=== PATIENT | male | born 1955 | race Caucasian/White ===

== ENCOUNTER 2017-03-23 08:37 | Outpatient (CLI) | payer OTHER ==
[~2017-03-23] VITALS: Ht 157.5 cm; Wt 80.0 kg
[2017-03-23 09:06] VITALS: BP 105/65; PULSE 56; RESP 16; Ht 157.5 cm; Wt 80.0 kg
[2017-03-23] MEDS ORDERED: FOLI-49 PO (09:14)
[2017-03-23] MEDS ORDERED: OMEP40CA6 PO (09:14)
[2017-03-23] MEDS ORDERED: THIA100T56 PO (09:14)
[2017-03-23] MEDS ORDERED: PROP10TA6 PO (09:14)
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
== END 2017-03-23 16:11 | disposition home or self-care (01) ==
LOC: HPC 08:37
PROVIDERS: ATTEND Transplant Surgery
DX: R16.0 Hepatomegaly, not elsewhere classified (principal); K74.60 Unspecified cirrhosis of liver; F10.10 Alcohol abuse, uncomplicated; B19.20 Unspecified viral hepatitis C without hepatic coma; K76.6 Portal hypertension; K31.9 Disease of stomach and duodenum, unspecified; D64.9 Anemia, unspecified
CPT/HCPCS: G0463

== ENCOUNTER 2017-06-20 16:48 | Inpatient (IN) | payer OTHER ==
[~2017-06-20] VITALS: Ht 152.4 cm; Wt 77.0 kg
[~2017-06-20 16:48] MED LIST: FOLI-49 PO; OMEP40CA6 PO; PROP10TA6 PO; THIA100T56 PO
[2017-06-20 17:01] VITALS: Ht 152.4 cm; Wt 77.0 kg
[2017-06-20] MEDS ORDERED: OCTREOTIDE 50 MCG in SOD CHLORIDE 0.9% 25 ML IVPB STA (17:38)
[2017-06-20] MEDS ORDERED: PANTOPRAZOLE IV 80 MG in SOD CHLORIDE 0.9% 100 ML IV STA (17:38)
[2017-06-20] MEDS ORDERED: CEFTRIAXONE 1 GM/50 ML (PMX) 50 ML IVPB STA (17:38)
[2017-06-20] MEDS ORDERED: OCTREOTIDE 500 MCG in SOD CHLORIDE 0.9% 49 ML IV STA (17:38)
[2017-06-20] MEDS ORDERED: PANTOPRAZOLE IV 80 MG in SOD CHLORIDE 0.9% 100 ML IVPB STA (17:38)
[2017-06-20 18:00] LABS: BASOPHILS % 0.4 % (0.0-2.0); EOSINOPHILS % 0.1 % (0.0-7.0); HEMATOCRIT 23.8 % (42.0-52.0); HEMOGLOBIN 7.5 g/dl (14.0-18.0); LYMPHOCYTES # 2.1 10^3/ul (0.8-2.9); LYMPHOCYTES % 18.7 % (15.0-51.0); MEAN CORPUSCULAR HEMOGLOBIN 29.3 pg (29.0-33.0); MEAN CORPUSCULAR HGB CONC 31.5 g/dl (32.0-37.0); MEAN PLATELET VOLUME 10.1 fl (7.4-10.4); MONOCYTE # 0.8 10^3/ul (0.3-0.9); NEUTROPHILS % 72.6 % (39.0-77.0); PLATELET COUNT 204 10^3/UL (140-415); RED BLOOD COUNT 2.56 10^6/ul (4.70-6.10); RED CELL DISTRIBUTION WIDTH 15.1 % (11.5-14.5)
[2017-06-20 18:17] LABS: INR 1.23; PROTIME 15.6 Sec (12.2-14.2); PT RATIO 1.2
[2017-06-20 18:19] LABS: ALANINE AMINOTRANSFERASE 52 IU/L (13-69); ALBUMIN 2.8 g/dl (3.3-4.9); ALBUMIN/GLOBULIN RATIO 0.71; ALKALINE PHOSPHATASE 280 IU/L (42-121); ANION GAP 15 (8-16); ASPARTATE AMINO TRANSFERASE 127 IU/L (15-46); BLOOD UREA NITROGEN 35 mg/dl (7-20); CALCIUM 8.9 mg/dl (8.4-10.2); CARBON DIOXIDE 21 mmol/L (21-31); CHLORIDE 106 mmol/L (97-110); GLUCOSE 91 mg/dl (70-220); POTASSIUM 4.7 mmol/L (3.5-5.1); SODIUM 137 mmol/L (135-144); TOTAL PROTEIN 6.7 g/dl (6.1-8.1)
[2017-06-20 18:35] LABS: TROPONIN-I < 0.012 ng/ml (0.00-0.12)
[2017-06-20] MEDS ORDERED: ONDANSETRON 4 MG INJ ONE (18:35)
[2017-06-20] MEDS ORDERED: ONDANSETRON 4 MG INJ IV STA (18:36)
[2017-06-20] MEDS ORDERED: morphine 4 MG/ML VIAL IV STA (18:49)
[2017-06-20] MEDS ORDERED: ACETAMINOPHEN 325 MG TAB PO PRN (19:00)
[2017-06-20] MEDS ORDERED: ONDANSETRON 4 MG INJ IV PRN ×2 (19:00→23:00)
--- NOTE | 2017-06-20 19:06 | ERA ---
ER Documentation Chief Complaint Date/Time DATE: 06/20/17 TIME: 19:01 Chief Complaint C/O FATIGUE, VOMITING, DIARRHEA, SOB, DIZZINESS HPI 62-year-old male history of cirrhosis secondary to alcohol, cholangiocarcinoma on chemotherapy last approximately 3-4 weeks ago. The patient presents with generalized fatigue, melena and coffee-ground emesis. He denies any chest pain or abdominal pain, no fevers or chills. The patient has had endoscopy showing esophageal varices. ROS All systems reviewed and are negative except as per history of present illness. Medications Home Meds Discontinued Reported Medications Propranolol Hcl* (Propranolol Hcl*) 10 Mg Tablet, 10 MG PO TID, TAB 03/23/17 Folic Acid* (Folic Acid*) 1 Mg Tablet, 1 MG PO DAILY, TAB 03/23/17 Omeprazole* (Omeprazole*) 40 Mg Capsule.dr, 40 MG PO DAILY, #30 CAP 03/23/17 Thiamine* (Vitamin B-1*) 100 Mg Tablet, 100 MG PO DAILY, TAB 03/23/17 Allergies Allergies: Coded Allergies: No Known Drug Allergies (Verified Allergy, Unknown, 06/20/17) PMhx/Soc History of Surgery: Yes (TACE, R shoulder, R arm surgery.) Anesthesia Reaction: No Hx Respiratory Disorders: No Hx Cardiac Disorders: No Hx Psychiatric Problems: No Hx Miscellaneous Medical Probl: Yes (Liver CA, Liver Chirrosis , Hep B, esophageal varices.) Hx Alcohol Use: No (HX of alcohol abuse.) Hx Substance Use: No Hx Tobacco Use: No Smoking Status: Former smoker FmHx Family History: No diabetes Physical Exam Vitals Vital Signs Date Time Temp Pulse Resp B/P Pulse Ox O2 Delivery O2 Flow Rate FiO2 06/20/17 17:01 97.7 114 18 114/66 99 Physical Exam General: Well developed, well nourished, no acute distress Head: Normocephalic, atraumatic. Eyes: Pupils equally reactive, EOM intact, conjunctival pallor noted ENT: Moist mucous membranes Neck: Supple, no lymphadenopathy Respiratory: Lungs clear bilaterally, no distress Cardiovascular: RRR, no murmurs, rubs, or gallops Abdominal: Soft, non-tender, non-distended, no peritoneal signs : Deferred MSK: No edema, no unilateral swelling, 5/5 strength Neurologic: Alert and oriented, moving all extremities, normal speech, no focal weakness, no cerebellar signs Skin: No rash Psych: Normal mood Result Diagram: 06/20/17 1750 06/20/171749 Results 24 hrs Laboratory Tests Test 06/20/17 17:50 White Blood Count 11.010^3/ul Red Blood Count 2.5610^6/ul Hemoglobin 7.5g/dl Hematocrit 23.8% Mean Corpuscular Volume 93.0fl Mean Corpuscular Hemoglobin 29.3pg Mean Corpuscular Hemoglobin Concent 31.5g/dl Red Cell Distribution Width 15.1% Platelet Count 56833^3/UL Mean Platelet Volume 10.1fl Neutrophils % 72.6% Lymphocytes % 18.7% Monocytes % 7.0% Eosinophils % 0.1% Basophils % 0.4% Nucleated Red Blood Cells % 0.0/100WBC Neutrophils # 8.010^3/ul Lymphocytes # 2.110^3/ul Monocytes # 0.810^3/ul Eosinophils # 0.010^3/ul Basophils # 0.010^3/ul Nucleated Red Blood Cells # 0.010^3/ul Prothrombin Time 15.6Sec Prothrombin Time Ratio 1.2 INR International Normalized Ratio 1.23 Activated Partial Thromboplast Time 32.0Sec Sodium Level 137mmol/L Potassium Level 4.7mmol/L Chloride Level 106mmol/L Carbon Dioxide Level 21mmol/L Anion Gap 15 Blood Urea Nitrogen 35mg/dl Creatinine 0.70mg/dl Glucose Level 91mg/dl Calcium Level 8.9mg/dl Total Bilirubin 1.0mg/dl Direct Bilirubin 0.00mg/dl Indirect Bilirubin 1.0mg/dl Aspartate Amino Transf (AST/SGOT) 127IU/L Alanine Aminotransferase (ALT/SGPT) 52IU/L Alkaline Phosphatase 280IU/L Troponin I < 0.012ng/ml Total Protein 6.7g/dl Albumin 2.8g/dl Globulin 3.90g/dl Albumin/Globulin Ratio 0.71 Current Medications Medications (Trade) Dose Ordered Sig/Allen Route PRN Reason Start Time Stop Time Status Last Admin Dose Admin Pantoprazole 80 mg/Sodium Chloride 100 ml @ 400 mls/hr ONCE STAT IVPB 06/20/17 17:38 06/20/17 17:52 DC 06/20/17 18:45 Pantoprazole 80 mg/Sodium Chloride 100 ml @ 10 mls/hr ONCE STAT IV 06/20/17 17:38 06/21/17 03:37 Octreotide Acetate 50 mcg/ Sodium Chloride 26 ml @ 100 mls/hr Q16M STAT IVPB 06/20/17 17:38 06/20/17 17:53 DC 06/20/17 18:45 Octreotide Acetate 500 mcg/ Sodium Chloride 50 ml @ 5 mls/hr ONCE STAT IV 06/20/17 17:38 06/21/17 03:37 Ceftriaxone Sodium (Rocephin) 50 ml @ 100 mls/hr ONCE STAT IVPB 06/20/17 17:38 06/20/17 18:07 DC 06/20/17 18:44 Ondansetron HCl (Zofran Inj) 4 mg STK-MED ONCE .ROUTE 06/20/17 18:35 06/20/17 18:36 DC Ondansetron HCl (Zofran Inj) 4 mg ONCE STAT IV 06/20/17 18:36 06/20/17 18:37 DC 06/20/17 18:45 Morphine Sulfate (morphine) 4 mg ONCE STAT IV 06/20/17 18:49 06/20/17 18:50 DC Procedures/MDM EKG, MONITORS, & DIAGNOSTIC IMAGING: EKG: I reviewed and interpreted a 12-lead EKG. Rhythm: Normal sinus rhythm Ectopy: None Intervals: No abnormalities ST segments: No elevations or depressions T waves: No contiguous inversions LAB INTERPRETATION: Hemoglobin of 7.5. It appears the baseline is around 10 in January MEDICAL DECISION MAKING: The patient presents with signs and symptoms consistent with subacute upper GI bleed. Likely secondary to esophageal varices. The patient was placed on a PPI , octreotide and ceftriaxone will be provided. At this time no indication for NG lavage. The patient has had a single episode of vomiting here that is coffee -ground, not bright red blood. The patient's hemoglobin is 7.5. Given that the patient has hemodynamic stability no indication for blood transfusion currently. However continue to monitor the patient's hemodynamics as well as serial hemoglobins. ER COURSE: The patient remains resting comfortably. 2 large-bore peripheral IVs have been inserted. Medications as documented above have been given. I spoke to Dr. Lamas, his hepatobiliary surgeon who is seen the patient before. I also spoke to Dr. Hairston, gastroenterology. He agrees with the plan of care. I kept the patient and/or family informed of laboratory and diagnostic imaging results throughout the emergency room course. DISPOSITION PLAN: Telemetry admission for management of subacute upper GI bleed. CONSULTATION: Accepting care team and consultations: I discussed the current laboratory data, diagnostic imaging and emergency care provided. Admitting team: Dr. Pineda Admitting team indication: Insurance directed Consulting services: Gastroenterology Dr. Hairston and hepatobiliary surgeon Dr. Lamas Departure Diagnosis: Primary Impression: Upper GI bleed Additional Impressions: History of cirrhosis Anemia Qualified Code: D64.9 - Anemia, unspecified type Condition: Stable YENY SHAH MD Jun 20, 2017 19:06
[2017-06-20 22:30] VITALS: TEMP 98.3
[2017-06-20] MEDS: SOD CHLORIDE 0.9% 1,000 ML IV SCH (22:59)
[2017-06-20] MEDS ORDERED: NACL 0.9% 3 ML SYG IV SCH (23:00)
[2017-06-21] VITALS (20 sets, daily range): BP systolic 97–118; BP diastolic 49–78; PULSE 68–117; RESP 17–31
[2017-06-21] MEDS: PANTOPRAZOLE IV 80 MG in SOD CHLORIDE 0.9% 100 ML IV SCH ×4 (03:41→21:31)
[2017-06-21] MEDS: OCTREOTIDE 1 MG in SOD CHLORIDE 0.9% 95 ML IV SCH ×2 (03:41→21:31)
--- NOTE | 2017-06-21 08:28 | HP ---
Date/Time of Note Date/Time of Note DATE: 06/21/17 TIME: 08:14 Assessment/Plan VTE Prophylaxis VTE Prophylaxis Intervention: SCD's Lines/Catheters IV [facility]from [facility] Saline Lock Assessment/Plan Chief Complaint/Hosp Course This is a 62-year-old male being admitted to the telemetry floor for: #1 upper GI bleed: Likely secondary to esophageal varices. At the current time patient is not actively bleeding. He did report an episode of bright bright red blood vomitus as well as dark vomitus. Initial hemoglobin was 7.5. H&H upon repeat it was 6.0. We will transfuse him 2 units of PRBCs. Will trend H& H q6 hours. Will continue octreotide and Protonix drip which was started in the ED. GI and surgery have been consulted. #2 esophageal varices: This likely appear to be the source of the bleeding though there is no active bleeding of bright red blood at this time. Will continue Protonix drip and octreotide. GI has been consulted. #3 abdominal ascites: Patient appears to have a significant amount of ascites which is not tense. He is not febrile. At the current time I will hold off on any paracentesis at this time secondary to #1. Once H&H is stable and patient is cleared by GI likely will get a therapeutic paracentesis. Patient also likely to be started on Lasix and spironolactone as an outpatient. #4 cirrhosis/hepatocellular CA: At the current time patient does not appear encephalopathic. Will get a hepatitis panel. We will need to start spironolactone and Lasix upon discharge when patient is stable. We will also check an ammonia level. Likely patient will need to start on lactulose as well. #5 cholangiocarcinoma: Patient received chemotherapy approximately 3-4 months ago. Continue outpatient follow-up with hematology. #6 DVT GI prophylaxis: SCDs, Protonix drip Further treatment strategy will be implemented as per the clinical course Problems: HPI/ROS Admit Date/Time Admit Date/Time Jun 20, 2017 at 19:00 Hx of Present Illness cc: fatigue, 62-year-old male history of cirrhosis secondary to alcohol, cholangiocarcinoma on chemotherapy last approximately 3-4 weeks ago. The patient presents with generalized fatigue, melena and coffee-ground emesis. He denies any chest pain , no fevers or chills. The patient has had endoscopy showing esophageal varices. Patient does report that he also has noticed abdominal distention over the most recent last few weeks. He denies ever having the paracentesis before. Allergies: NKDA Medications: See DANAY IGNACIA Const: As per HPI Eyes : No pain discharge or redness or change in visual acuity ENT: No pain, sore throat, congestion, congestion, dysphagia or discharge Respiratory: No shortness of breath, cough, sputum, wheezing, or pleuritic pain Cardiovascular: No chest pain, palpitation, PND, or edema GI : As per HPI Genitourinary: No dysuria, hematuria, flank pain , discharge or CVA tenderness Musculoskeletal: No joint pain, back pain, neck pain, restricted range of motion in neck or joints Skin: No rash, bruising or hives Neuro: No headache, dizziness, syncope, seizure, focal weakness Endocrine: No polyuria, polydipsia, temperature intolerance Psych: No hallucination, depression, anxiety or suicidal ideation PMH/Family/Social Past Medical History Cholangiocarcinoma status post chemotherapy, liver cirrhosis, hepatitis C, esophageal varices, multifocal hepatocellular carcinoma, s/p TACE Past Surgical History Right thigh hematoma removal, right sole shoulder surgery, Family History Significant Family History: no pertinent family hx Social History Alcohol Use: sober Smoking Status: Never smoker Drug Use: none Exam/Review of Systems Vital Signs Vitals Vital Signs Date Time Temp Pulse Resp B/P Pulse Ox O2 Delivery O2 Flow Rate FiO2 06/21/17 07:37 98.3 107 17 115/71 98 06/20/17 22:30 Room Air Intake and Output 06/20/17 06/20/17 06/21/17 15:00 23:00 07:00 Intake Total 0 ml Output Total 500 ml Balance -500 ml Exam Exam General: Patient is a pleasant male lying in bed in no acute distress HEENT: Atraumatic, normocephalic. The pupils are equal, round and reactive. Extraocular motor are intact Neck: Supple with full range of motion. No rigidity or meningismus Chest: Nontender Lungs: Clear to auscultation bilaterally no crackles rales or wheezing Heart: Normal S1-S2, Regular rhythm and rate. Abdomen: Soft, distended abdomen but it is not tense, normal bowel sounds Extremities: Normal to inspection, no edema no cyanosis Neurologic: Normal mental status, speech normal, cranial nerves II through XII are intact, motor and sensory are intact, no focal weakness physical exam, he does not appear encephalopathic. Labs Result Diagram: 06/21/17 0010 06/20/17 1750 Medications Medications Current Medications Sodium Chloride (NS) 1,000 ml @ 70 mls/hr [id number] IV Last administered on 06/20 22:59; Admin Dose 70 MLS/HR; Start 06/20/17 at 22:59 Ondansetron HCl (Zofran Inj) 4 mg Q6H PRN IV NAUSEA AND/OR VOMITING; Start 06/20/17 at 23:00 Morphine Sulfate 2 mg 2 mg Q4H PRN IV PAIN LEVEL 7-10; Start 06/20/17 at 23:00 Pantoprazole 80 mg/Sodium Chloride 100 ml @ 10 mls/hr Q10H IV Last administered on 06/21/17 03:41; Admin Dose 10 MLS/HR; Start 06/20/17 at 23:30 Octreotide Acetate/Sodium Chloride (Sandostatin/NS) 100 ml @ 5 mls/hr Q20H IV Last administered on 06/21/17 03:41; Admin Dose 5 MLS/HR; Start 06/20/17 at 23: 30 JIAN LEON Jun 21, 2017 08:28
[2017-06-21 09:18] LABS: HAAIG REFLEX REFLEX FILED
[2017-06-21 10:37] LABS: HEPATITIS B CORE ANTIBODY NEGATIVE (NEGATIVE)
[2017-06-21 11:35] LABS: HEMATOCRIT 20.1 % (42.0-52.0)
[2017-06-21 11:53] LABS: HEMOGLOBIN 6.4 g/dl (14.0-18.0)
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
[2017-06-21] MEDS: SOD CHLORIDE 0.9% 1,000 ML IV SCH (13:22)
[2017-06-21] MEDS ORDERED: VANCOMYCIN IV PER PHARMACY XX SCH (15:30)
[2017-06-21] MEDS ORDERED: PIPER-TAZO 3.375 GM IV (PMX) 100 ML IVPB SCH (16:00)
[2017-06-21 17:19] LABS: HEMATOCRIT 23.3 % (42.0-52.0); HEMOGLOBIN 7.6 g/dl (14.0-18.0)
[2017-06-21 17:48] LABS: ALBUMIN 2.5 g/dl (3.3-4.9); ALBUMIN/GLOBULIN RATIO 0.78; BILIRUBIN,DIRECT 0.5 mg/dl (0.00-0.20); BILIRUBIN,INDIRECT 1.4 mg/dl (0-1.1); BILIRUBIN,TOTAL 1.9 mg/dl (0.2-1.3); CALCIUM 7.7 mg/dl (8.4-10.2); CREATININE 0.86 mg/dl (0.61-1.24); POTASSIUM 4.9 mmol/L (3.5-5.1); TOTAL PROTEIN 5.7 g/dl (6.1-8.1)
--- NOTE | 2017-06-21 17:50 | PN ---
Date/Time of Note Date/Time of Note DATE: 06/21/17 TIME: 17:41 Assessment/Plan VTE Prophylaxis VTE Prophylaxis Intervention: contraindicated Lines/Catheters IV Catheter Type (from Nrs): Saline Lock Assessment/Plan Assessment/Plan 1. Upper GI bleed secondary to ?varices - GI on board and consultation appreciated - EGD today for further assessment - Will continue PPI drip and octreotide - monitor for further episodes of hematemesis or melena/hemotochezia 2. Anemia secondary to cirrhosis and blood loss - H/H this am <7 and transfused 2 units. Will continue monitoring and transfuse as needed - If <7.5 will give 1 unit PRBC and <7 give 2 units 3. Cirrhosis 2/2 alcohol abuse - in need of paracentesis and will consult IR when hemodynamically stable 4. HCC s/p TACE and reportedly on systemic chemo - currently undergoing treatment - Surgery on board and recommendations appreciated - If patient has extended stay will get Heme/Onc on board as well 5. Ascites - Will do therapeutic tap when stable - On broad spectrum antibiotics to cover SBP Subjective 24 Hr Interval Summary Free Text/Dictation Patient was seen this am and tolerating blood transfusion. Admits to dark emesis and diarrhea for the past 2 days. Still experiencing nausea without vomiting and abdominal discomfort secondary to abdominal swelling. Concerned about needing to be tapped since abdomen so swollen. Exam/Review of Systems Vital Signs Vitals Vital Signs Date Time Temp Pulse Resp B/P Pulse Ox O2 Delivery O2 Flow Rate FiO2 06/21/17 15:36 98.7 100 18 110/78 95 06/20/17 22:30 Room Air Intake and Output 06/20/17 06/20/17 06/21/17 15:00 23:00 07:00 Intake Total 0 ml Output Total 500 ml Balance -500 ml Exam General: NAD, pale complexion, receiving blood transfusion HEENT: NC/AT, PERRL, EOM intact Neck: Supple with full range of motion Lungs: Clear to auscultation bilaterally no crackles rales or wheezing Heart: Normal S1-S2, Regular rhythm and rate. Abdomen: Soft, distended abdomen but not tense, normal bowel sounds Extremities: Normal to inspection, no edema no cyanosis Neurologic: Normal mental status, speech normal, cranial nerves II through XII are intact, motor and sensory are intact, no focal weakness physical exam, he does not appear encephalopathic. Results Result Diagram: 06/21/17 1700 06/20/17 1750 Results 24 hrs Laboratory Tests Test 06/20/17 17:50 06/21/17 00:10 06/21/17 09:02 06/21/17 09:07 White Blood Count 11.0 H Red Blood Count 2.56 L Hemoglobin 7.5 L 6.0 *L 6.4 *L Hematocrit 23.8 L 20.0 L 20.1 L Mean Corpuscular Volume 93.0 Mean Corpuscular Hemoglobin 29.3 Mean Corpuscular Hemoglobin Concent 31.5 L Red Cell Distribution Width 15.1 H Platelet Count 204 Mean Platelet Volume 10.1 Neutrophils % 72.6 Lymphocytes % 18.7 Monocytes % 7.0 Eosinophils % 0.1 Basophils % 0.4 Nucleated Red Blood Cells % 0.0 Neutrophils # 8.0 H Lymphocytes # 2.1 Monocytes # 0.8 Eosinophils # 0.0 Basophils # 0.0 Nucleated Red Blood Cells # 0.0 Prothrombin Time 15.6 H Prothrombin Time Ratio 1.2 INR International Normalized Ratio 1.23 Activated Partial Thromboplast Time 32.0 Sodium Level 137 Potassium Level 4.7 Chloride Level 106 Carbon Dioxide Level 21 Anion Gap 15 Blood Urea Nitrogen 35 H Creatinine 0.70 Glucose Level 91 Calcium Level 8.9 Total Bilirubin 1.0 Direct Bilirubin 0.00 Indirect Bilirubin 1.0 Aspartate Amino Transf (AST/SGOT) 127 H Alanine Aminotransferase (ALT/SGPT) 52 Alkaline Phosphatase 280 H Troponin I < 0.012 Total Protein 6.7 Albumin 2.8 L Globulin 3.90 H Albumin/Globulin Ratio 0.71 Ammonia 49 H Hepatitis A Antibody Total POSITIVE H Hepatitis B Surface Antigen NEGATIVE Hepatitis B Surface Antibody NEGATIVE Hepatitis B Core Total Antibody NEGATIVE Hepatitis C Antibody REACTIVE H Test 06/21/17 17:00 Hemoglobin 7.6 L Hematocrit 23.3 L Medications Medications Current Medications Sodium Chloride (NS) 1,000 ml @ 70 mls/hr [id number] IV Last administered on 06/21t 13:22; Admin Dose 70 MLS/HR; Start 06/20/17 at 22:59 Ondansetron HCl (Zofran Inj) 4 mg Q6H PRN IV NAUSEA AND/OR VOMITING; Start 06/20/17 at 23:00 Morphine Sulfate 2 mg 2 mg Q4H PRN IV PAIN LEVEL 7-10; Start 06/20/17 at 23:00 Pantoprazole 80 mg/Sodium Chloride 100 ml @ 10 mls/hr Q10H IV Last administered on 06/21/17 03:41; Admin Dose 10 MLS/HR; Start 06/20/17 at 23:30 Octreotide Acetate 1 mg/ Sodium Chloride 100 ml @ 5 mls/hr Q20H IV Last administered on 06/21/17 03:41; Admin Dose 5 MLS/HR; Start 06/20/17 at 23:30 Piperacillin Sod/ Tazobactam Sod 100 ml @ 200 mls/hr Q8 IVPB ; Start 06/21/17 at 16:00 Vancomycin HCl 1.5 gm/Sodium Chloride 250 ml @ 83.333 mls/ hr ONCE@18 IVPB ; Start 06/21/17 at 18:00; Stop 06/21/17 at 21:00 Vancomycin HCl (Vancocin) 250 ml @ 125 mls/hr Q12H IVPB ; Start 06/22/17 at 06: 00 GAYATHRI CUTLER MD Jun 21, 2017 17:50
[2017-06-21] MEDS ORDERED: VANCOMYCIN 1.5 GM in SOD CHLORIDE 0.9% 250 ML IVPB SCH ×2 (18:00→20:00)
[2017-06-21] MEDS ORDERED: ONDANSETRON 4 MG INJ IV PRN (18:00)
[2017-06-21] MEDS ORDERED: PROPOFOL 40 ML ONE (19:18)
--- NOTE | 2017-06-21 20:08 | CONS ---
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 Patient informed procedure including risks, benefits alternatives. Agreeable to proceed. * Further recommendations pending our findings. . 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 The patient presents to the hospital complaining of several days of black tarry stools and also several episodes of hematemesis and small to moderate amounts. The patient is found to have significant anemia. The patient has been placed on Protonix and octreotide drip. The patient has previous history of esophageal varices and very likely esophageal variceal ligation although the patient is not quite sure what specific therapies have been undertaken in the past. The patient shows no evidence of encephalopathy at the present time. Coagulation parameters are relatively close to normal with platelet count over 200,000 and INR 1.2 range. The patient severely anemic despite blood transfusions. Patient will be evaluated endoscopically at this time further recommendation will depend on our findings. Constitutional: improved, no complaints Eyes: no complaints ENT: no complaints Respiratory: no complaints Cardiovascular: no complaints Gastrointestinal: other (See HPI) Genitourinary: no complaints Musculoskeletal: no complaints Skin: no complaints Neurologic: no complaints Endocrine: no complaints Lymphatic: no complaints Psychological: nl mood/affect, no complaints Immunologic: no complaints Past Medical History Cirrhosis of the liver alcohol plus HCV Multifocal hepatocellular carcinoma Alcohol abuse Past Surgical History Past Surgical Hx: no surgical history Family History Significant Family History: no pertinent family hx Social History Alcohol Use: sober Smoking Status: Never smoker Drug Use: none Exam/Review of Systems Vital Signs Vitals Vital Signs Date Time Temp Pulse Resp B/P Pulse Ox O2 Delivery O2 Flow Rate FiO2 06/21/17 19:26 109 24 117/63 96 Room Air 06/21/17 15:36 98.7 Intake and Output 06/20/17 06/20/17 06/21/17 15:00 23:00 07:00 Intake Total 0 ml Output Total 500 ml Balance -500 ml Exam PHYSICAL EXAMINATION: GENERAL: Well developed, well nourished, alert & oriented x 3, in no acute distress SKIN: No lesions, positive stigmata chronic liver disease, no evidence of bleeding diathesis LYMPHATIC: No palpable lymphadenopathy. HEAD: Normocephalic, atraumatic, no tenderness. EYES: Pupils equal reactive to light and accommodation, full extraocular movements, sclera clear, non-icteric, no discharge. EARS/NOSE AND THROAT: Ears normal, nose normal, oropharynx normal, oral membranes well hydrated without lesions. NECK: Supple, no masses, thyroid normal, JVP within normal limits, carotids normal without bruits. CHEST: Inspection within normal limits, breasts grossly normal. CARDIOVASCULAR: Heart: Regular rate and rhythm, no murmurs, gallops or rubs. Peripheral pulses present within normal limits, no cyanosis, clubbing or edemas. No pulsatile abdominal mass RESPIRATORY: Lungs clear to auscultation and percussion, no wheezing, no rubs GASTROINTESTINAL AND LIVER: Abdomen: Soft, epigastric tenderness, moderately distended, no hernias, no masses, no organomegaly, small amount of ascites, no guarding, no rebound tenderness, normoactive bowel sounds. Rectal: Deferred. GENITOURINARY: [Male genitalia within normal limits.] MUSCULO-SKELETAL: Gait and station within normal limits, range of motion adequate. Results Result Diagram: 06/21/17 17006/21/17 170 Results 24 hrs Laboratory Tests Test 06/21/17 00:10 06/21/17 09:02 06/21/17 09:07 06/21/17 17:00 Hemoglobin 6.0 *L 6.4 *L 7.6 L Hematocrit 20.0 L 20.1 L 23.3 L Ammonia 49 H Hepatitis A Antibody Total POSITIVE H Hepatitis B Surface Antigen NEGATIVE Hepatitis B Surface Antibody NEGATIVE Hepatitis B Core Total Antibody NEGATIVE Hepatitis C Antibody REACTIVE H Sodium Level 135 Potassium Level 4.9 Chloride Level 109 Carbon Dioxide Level 21 Anion Gap 10 # Blood Urea Nitrogen 39 H Creatinine 0.86 Glucose Level 116 Hemoglobin A1c 5.8 Calcium Level 7.7 L Magnesium Level 1.8 Total Bilirubin 1.9 H Direct Bilirubin 0.50 #H Indirect Bilirubin 1.4 H Aspartate Amino Transf (AST/SGOT) 988 #H Alanine Aminotransferase (ALT/SGPT) 112 H Alkaline Phosphatase 275 H Total Protein 5.7 #L Albumin 2.5 L Globulin 3.20 Albumin/Globulin Ratio 0.78 Thyroid Stimulating Hormone (TSH) Pending Medications Medications Current Medications Sodium Chloride (NS) 1,000 ml @ 70 mls/hr [id number] IV Last administered on 06/21 13:22; Admin Dose 70 MLS/HR; Start 06/20/17 at 22:59 Ondansetron HCl (Zofran Inj) 4 mg Q6H PRN IV NAUSEA AND/OR VOMITING; Start 06/20/17 at 23:00 Morphine Sulfate 2 mg 2 mg Q4H PRN IV PAIN LEVEL 7-10; Start 06/20/17 at 23:00 Pantoprazole 80 mg/Sodium Chloride 100 ml @ 10 mls/hr Q10H IV Last administered on 06/21/17 03:41; Admin Dose 10 MLS/HR; Start 06/20/17 at 23:30 Octreotide Acetate 1 mg/ Sodium Chloride 100 ml @ 5 mls/hr Q20H IV Last administered on 06/21/17 03:41; Admin Dose 5 MLS/HR; Start 06/20/17 at 23:30 Vancomycin HCl 250 ml @ 125 mls/hr Q12H IVPB ; Start 06/22/17 at 06:00 Piperacillin Sod/ Tazobactam Sod 100 ml @ 200 mls/hr Q8 IVPB ; Start 06/21/17 at 22:00 Vancomycin HCl/ Sodium Chloride (Vancocin/NS) 250 ml @ 83.333 mls/ hr ONCE@20 IVPB ; Start 06/21/17 at 20:00; Stop 06/21/17 at 22:59 Copies To: CC: NATE CASTRO MD, MORDO MD Jun 21, 2017 20:08
[2017-06-21 20:11] LABS: THYROID STIMULATING HORMONE 0.146 MIU/L (0.465-4.680)
--- NOTE | 2017-06-21 20:15 | OPPN ---
Date/Time of Note Date/Time of Note DATE: 06/21/17 TIME: 20:08 Proc Note GI Procedure Date 06/21/17 Pre-procedure Diagnosis * GI bleeding/anemia * History of cirrhosis/history of esophageal varices Post-procedure Diagnosis Impression: * Grade I/IV esophageal varices * Evidence of previous EVL * Most severe portal hypertensive gastropathy * Source of bleeding due to extreme friability * Rule out H. pylori, single biopsy obtained * Otherwise normal EGD Plan: * Continue Protonix and octreotide drips * Add liquid Carafate * Monitor H&H and transfuse as necessary * If hemoglobin continues to drop the patient will required decompression of portal hypertension with TIPS no endoscopic options available to address this issue . Procedure Performed: Endoscopy (Plus biopsy) Surgeon NATE CASTRO MD Manager Telemetry none Anesthesia Type: MAC Anesthesiologist: JASMINA RIVERO MD Tourniquet Time none EBL none Transfusion required none Biopsy 1: Gastric antrum Grafts/Implants none Tubes/Drains none Complication(s) none Pt Condition post procedure: stable Disposition: PACU Indications: other (GI bleeding) Procedure Description After informed consent, with the patient/relatives understanding the procedure, its indications, potential risks and complications, including but not limited to : allergic reaction, bleeding, perforation or infection, and after all pertinent questions were answered to the patients satisfaction, the patient/ relatives signed witnessed informed consent. Following this, premedication was administered slowly IV push under careful cardiovascular and respiratory monitoring with pulse oximetry, automatic blood pressure, and fisheries technician. Once the sedative effect was achieved the patient was place in the left lateral decubitus, the panendoscope was introduced and advanced under visual control. Careful examination of the upper gastrointestinal tract, both on insertion as well as withdrawal of the instrument disclosing the following findings: ESOPHAGUS: the mucosa of the entire esophagus was carefully examined and showed the following findings: There are grade I/IV esophageal varices with no evidence of bleeding. Otherwise the mucosa appears within normal limits. There is no evidence of esophagitis, neoplasm, or stricture. No Hiatal Hernia identified. STOMACH: Upon entrance to the stomach air was insufflated, the gastric [place] distended normally. The mucosa of the fundus, body and antrum of the stomach was carefully examined both head-on and on retroflexion, and showed the following findings: The entire stomach is severely congested and erythematous with hemorrhagic appearance. These findings appear very likely severe portal hypertension with portal gastropathy. No fundal gastric varices are present. The gastric mucosa is friable and bleeds easily. A single biopsy was obtained in the antrum to rule out H. pylori infection. Otherwise the mucosa appears within normal limits with no abnormalities. There is no evidence of ulcers or neoplasm. PYLORUS: The pylorus was carefully examined and showed the following findings: the pylorus appears patent and within normal limits, with no evidence of gastric outlet obstruction. DUODENUM: The duodenal mucosa was carefully examined in the duodenal bulb as well as the second portion of the duodenum and showed the following findings: the mucosa appears unremarkable with no evidence of duodenitis, ulcer or neoplasm. Copies To: CC: NATE CASTRO MD, MORDO MD Jun 21, 2017 20:15
[2017-06-21] MEDS: morphine 2 MG INJ IV PRN (20:19)
[2017-06-21] MEDS: SUCRALFATE (100 MG/ML) 10ML CUP PO SCH (21:32)
[2017-06-21] MEDS: PIPER-TAZO 3.375 GM IV (PMX) 100 ML IVPB SCH (21:50)
[2017-06-22] VITALS (11 sets, daily range): BP systolic 111–129; BP diastolic 64–70; PULSE 97–107; RESP 16–20
[2017-06-22 01:41] LABS: HEMATOCRIT 22.3 % (42.0-52.0); HEMOGLOBIN 7.4 g/dl (14.0-18.0)
[2017-06-22] MEDS: morphine 2 MG INJ IV PRN ×3 (01:43→20:20)
[2017-06-22] MEDS: SOD CHLORIDE 0.9% 1,000 ML IV SCH ×2 (03:35→17:53)
[2017-06-22] MEDS: PANTOPRAZOLE IV 80 MG in SOD CHLORIDE 0.9% 100 ML IV SCH ×2 (05:30→15:30)
[2017-06-22] MEDS ORDERED: VANCOMYCIN 1 GM in NS 250 ML IVPB SCH (06:00)
[2017-06-22] MEDS: PIPER-TAZO 3.375 GM IV (PMX) 100 ML IVPB SCH ×3 (06:58→21:49)
[2017-06-22] MEDS: SUCRALFATE (100 MG/ML) 10ML CUP PO SCH ×4 (08:17→20:29)
[2017-06-22 08:46] LABS: HEMATOCRIT 26.5 % (42.0-52.0); HEMOGLOBIN 8.6 g/dl (14.0-18.0)
[2017-06-22 09:19] LABS: ALBUMIN 2.5 g/dl (3.3-4.9); ALBUMIN/GLOBULIN RATIO 0.75; BILIRUBIN,DIRECT 0.8 mg/dl (0.00-0.20); BILIRUBIN,INDIRECT 2.2 mg/dl (0-1.1); CALCIUM 7.3 mg/dl (8.4-10.2); CREATININE 0.86 mg/dl (0.61-1.24); TOTAL PROTEIN 5.8 g/dl (6.1-8.1)
[2017-06-22 09:49] LABS: CARCINOEMBRYONIC ANTIGEN 1.1 ng/ml (0.0-5.0)
[2017-06-22 09:53] LABS: CANCER ANTIGEN 19-9 14.3 U/ml (0.0-37.0)
[2017-06-22 11:46] LABS: HEMATOCRIT 24.3 % (42.0-52.0)
--- NOTE | 2017-06-22 13:58 | PN ---
Date/Time of Note Date/Time of Note DATE: 06/22/17 TIME: 13:49 Assessment/Plan VTE Prophylaxis VTE Prophylaxis Intervention: contraindicated, SCD's Lines/Catheters IV Catheter Type (from Nrs): Peripheral IV Assessment/Plan Assessment/Plan 1. Upper GI bleed secondary to esophageal varices - GI on board and consultation appreciated - EGD performed yesterday with findings of grade I/IV esophageal varices, previous EVL, and severe portal hypertensive gastropathy. biopsy obtained to rule out Hpylori - Will continue PPI drip and octreotide - monitor for further episodes of hematemesis or melena/hemotochezia 2. Anemia secondary to cirrhosis and blood loss - H/H q6hr. Today 8.6 to 8.0 and will continue monitoring for acute drop - H/H this am <7 and transfused 2 units. Will continue monitoring and transfuse as needed - If <7.5 will give 1 unit PRBC and <7 give 2 units 3. Cirrhosis 2/2 alcohol abuse - will check INR and order for therapeutic paracentesis 4. HCC s/p TACE and reportedly on systemic chemo - currently undergoing treatment - Surgery on board and recommendations appreciated - If patient has extended stay will get Heme/Onc on board as well 5. Ascites - Will do therapeutic tap when stable - On broad spectrum antibiotics to cover SBP Subjective 24 Hr Interval Summary Free Text/Dictation Patient still c/o abdominal distention with discomfort and associated shortness of breath. Also admits to one episodes of diarrhea thats dark in color with trace bright red blood. denies any fevers, chest pain, palpitations, nausea, vomiting. Exam/Review of Systems Vital Signs Vitals Vital Signs Date Time Temp Pulse Resp B/P Pulse Ox O2 Delivery O2 Flow Rate FiO2 06/22/17 12:30 98 06/22/17 11:18 98.6 16 111/67 94 06/21/17 20:46 Room Air Intake and Output 06/21/17 06/21/17 06/22/17 15:00 23:00 07:00 Intake Total 980 ml 100 ml 1033 ml Output Total 420 ml 400 ml Balance 560 ml 100 ml 633 ml Exam General: NAD, mild distress secondary to abdominal distension HEENT: NC/AT, PERRL, EOM intact Neck: Supple with full range of motion Lungs: Clear to auscultation bilaterally no crackles rales or wheezing Heart: Normal S1-S2, Regular rhythm and rate. Abdomen: Soft, distended abdomen but not tense, normal bowel sounds Extremities: Normal to inspection, no edema no cyanosis Neurologic: Normal mental status, speech normal, cranial nerves II through XII are intact, motor and sensory are intact, no focal weakness physical exam, Results Result Diagram: 06/22/17 1131 06/22/17 0821 Results 24 hrs Laboratory Tests Test 06/21/17 17:00 06/22/17 00:51 06/22/17 06:22 06/22/17 08:21 Hemoglobin 7.6 L 7.4 L 8.6 L Hematocrit 23.3 L 22.3 L 26.5 L Sodium Level 135 133 L Potassium Level 4.9 4.0 Chloride Level 109 106 Carbon Dioxide Level 21 23 Anion Gap 10 # 8 Blood Urea Nitrogen 39 H 31 H Creatinine 0.86 0.86 Glucose Level 116 141 Hemoglobin A1c 5.8 Calcium Level 7.7 L 7.3 L Magnesium Level 1.8 1.9 Total Bilirubin 1.9 H 3.0 H Direct Bilirubin 0.50 #H 0.80 #H Indirect Bilirubin 1.4 H 2.2 H Aspartate Amino Transf (AST/SGOT) 988 #H 1329 H Alanine Aminotransferase (ALT/SGPT) 112 H 153 H Alkaline Phosphatase 275 H 308 H Total Protein 5.7 #L 5.8 L Albumin 2.5 L 2.5 L Globulin 3.20 3.30 H Albumin/Globulin Ratio 0.78 0.75 Thyroid Stimulating Hormone (TSH) 0.146 L Lab Scanned Report BLOOD TRANSFUSION Alpha Fetoprotein 3060.00 H Carcinoembryonic Antigen 1.1 CA 19-9 Antigen 14.3 CA 125 Antigen 451.0 H Test 06/22/17 11:31 Hemoglobin 8.0 L Hematocrit 24.3 L Medications Medications Current Medications Sodium Chloride (NS) 1,000 ml @ 70 mls/hr [id number] IV Last administered on 06/21t 13:22; Admin Dose 70 MLS/HR; Start 06/20/17 at 22:59 Ondansetron HCl (Zofran Inj) 4 mg Q6H PRN IV NAUSEA AND/OR VOMITING; Start 06/20/17 at 23:00 Morphine Sulfate 2 mg 2 mg Q4H PRN IV PAIN LEVEL 7-10 Last administered on 06/22 08:17; Admin Dose 2 MG; Start 06/20/17 at 23:00 Pantoprazole 80 mg/Sodium Chloride 100 ml @ 10 mls/hr Q10H IV Last administered on 06/21/17 21:31; Admin Dose 10 MLS/HR; Start 06/20/17 at 23:30 Octreotide Acetate 1 mg/ Sodium Chloride 100 ml @ 5 mls/hr Q20H IV Last administered on 06/21/17 21:31; Admin Dose 5 MLS/HR; Start 06/20/17 at 23:30 Vancomycin HCl 250 ml @ 125 mls/hr Q12H IVPB Last administered on 06/22/17 08 :18; Admin Dose 125 MLS/HR; Start 06/22/17 at 06:00 Piperacillin Sod/ Tazobactam Sod (Zosyn 3.375gm/ 100 ml (Pmx)) 100 ml @ 200 mls /hr Q8 IVPB Last administered on 06/22/17 13:33; Admin Dose 200 MLS/HR; Start 06/21/17 at 22:00 Sucralfate (Carafate Susp) 1 gm QID PO Last administered on 06/22/17 13:33; Admin Dose 1 GM; Start 06/21/17 at 21:00 GAYATHRI CUTLER MD Jun 22, 2017 13:58
[2017-06-22] MEDS: OCTREOTIDE 1 MG in SOD CHLORIDE 0.9% 95 ML IV SCH (15:30)
[2017-06-22 15:37] LABS: BASOPHILS % 0.3 % (0.0-2.0); EOSINOPHILS % 0.2 % (0.0-7.0); HEMATOCRIT 25.5 % (42.0-52.0); HEMOGLOBIN 8.3 g/dl (14.0-18.0); LYMPHOCYTES # 0.9 10^3/ul (0.8-2.9); LYMPHOCYTES % 9.1 % (15.0-51.0); MEAN CORPUSCULAR HEMOGLOBIN 28.9 pg (29.0-33.0); MEAN CORPUSCULAR HGB CONC 32.5 g/dl (32.0-37.0); MEAN CORPUSCULAR VOLUME 88.9 fl (82.0-101.0); MEAN PLATELET VOLUME 10.1 fl (7.4-10.4); MONOCYTE # 1.4 10^3/ul (0.3-0.9); MONOCYTES % 13.6 % (0.0-11.0); NEUTROPHIL # 7.7 10^3/ul (1.6-7.5); NEUTROPHILS % 75.1 % (39.0-77.0); NUCLEATED RED BLOOD CELLS # 0.1 10^3/ul (0.0-0.0); PLATELET COUNT 107 10^3/UL (140-415); RED BLOOD COUNT 2.87 10^6/ul (4.70-6.10); RED CELL DISTRIBUTION WIDTH 16.9 % (11.5-14.5); WHITE BLOOD COUNT 10.2 10^3/ul (4.8-10.8)
[2017-06-22 15:51] LABS: INR 1.44; PROTIME 17.6 Sec (12.2-14.2); PT RATIO 1.4
[2017-06-22 16:00] LABS: CALCIUM 7.1 mg/dl (8.4-10.2); CREATININE 0.8 mg/dl (0.61-1.24)
[2017-06-22 18:37] LABS: HEMATOCRIT 26.9 % (42.0-52.0); HEMOGLOBIN 8.8 g/dl (14.0-18.0)
--- NOTE | 2017-06-22 19:45 | PN ---
Date/Time of Note Date/Time of Note DATE: 06/22/17 TIME: 19:36 Assessment/Plan VTE Prophylaxis VTE Prophylaxis Intervention: SCD's Lines/Catheters IV Catheter Type (from Nrs): Peripheral IV Assessment/Plan Chief Complaint/Hosp Course Assessment: GI bleeding/hematemesis/melena EGD * Grade I/IV esophageal varices * Evidence of previous EVL * Most severe portal hypertensive gastropathy likely source of bleeding due to extreme friability * Rule out H. 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 * History of esophageal varices post endoscopic variceal ligation * Ascites/increasing * Mild coagulopathy * Multifocal hepatocellular carcinoma * History of alcohol abuse Plan: Therapeutic paracenteses Continue present regimen DC octreotide and Protonix drip Protonix 40 mg daily Once stable discharge to be followed by his physicians at [facility] which is a TIPS capable institution Subjective: Course reviewed with nursing staff Patient interviewed and examined All labs, imaging and other results reviewed The patient has developed significant ascites Was scheduled for therapeutic paracenteses but that has been postponed until tomorrow Results of endoscopic examination and analysis of situation reviewed with patient's daughter If bleeding recurs or continues TIPS may be the only option I have also advised him that once stable he should seek transplant evaluation Exam: General: well developed, well nourished, alert and oriented x3 , in no acute distress Skin: No lesions, no stigmata chronic liver disease, no evidence of bleeding diathesis Lymphatic: No palpable lymphadenopathy HEENT: No lesions Cardiovascular: Heart: Regular rate and rhythm, no murmurs, gallops or rubs. Peripheral pulses present within normal limits, no cyanosis, clubbing or edemas. No pulsatile abdominal mass Respiratory: Lungs clear to auscultation and percussion, no wheezing, no rubs Gastrointestinal and Liver: Abdomen: Soft, moderately tender, severely distended , no hernias, no masses, no organomegaly, large amount of ascites, no guarding, no rebound tenderness, normoactive bowel sounds. Extremities: No cyanosis, clubbing, or edema. Diagnostic Studies: Available data and images were reviewed personally. See reports. Significant results and findings are addressed here or in the assessment and plan. Problems: Exam/Review of Systems Vital Signs Vitals Vital Signs Date Time Temp Pulse Resp B/P Pulse Ox O2 Delivery O2 Flow Rate FiO2 06/22/17 16:24 101 06/22/17 15:39 98.1 16 112/70 98 06/21/17 20:46 Room Air Intake and Output 06/21/17 06/21/17 06/22/17 15:00 23:00 07:00 Intake Total 980 ml 100 ml 1033 ml Output Total 420 ml 400 ml Balance 560 ml 100 ml 633 ml Results Result Diagram: 06/22/17 1809 06/22/17 1511 Results 24 hrs Laboratory Tests Test 06/22/17 00:51 06/22/17 06:22 06/22/17 08:21 06/22/17 11:31 Hemoglobin 7.4 L 8.6 L 8.0 L Hematocrit 22.3 L 26.5 L 24.3 L Lab Scanned Report BLOOD TRANSFUSION Sodium Level 133 L Potassium Level 4.0 Chloride Level 106 Carbon Dioxide Level 23 Anion Gap 8 Blood Urea Nitrogen 31 H Creatinine 0.86 Glucose Level 141 Calcium Level 7.3 L Magnesium Level 1.9 Total Bilirubin 3.0 H Direct Bilirubin 0.80 #H Indirect Bilirubin 2.2 H Aspartate Amino Transf (AST/SGOT) 1329 H Alanine Aminotransferase (ALT/SGPT) 153 H Alkaline Phosphatase 308 H Total Protein 5.8 L Albumin 2.5 L Globulin 3.30 H Albumin/Globulin Ratio 0.75 Alpha Fetoprotein 3060.00 H Carcinoembryonic Antigen 1.1 CA 19-9 Antigen 14.3 CA 125 Antigen 451.0 H Test 06/22/17 15:11 06/22/17 18:09 White Blood Count 10.2 Red Blood Count 2.87 L Hemoglobin 8.3 L 8.8 L Hematocrit 25.5 L 26.9 L Mean Corpuscular Volume 88.9 Mean Corpuscular Hemoglobin 28.9 L Mean Corpuscular Hemoglobin Concent 32.5 Red Cell Distribution Width 16.9 H Platelet Count 107 #L Mean Platelet Volume 10.1 Neutrophils % 75.1 Lymphocytes % 9.1 L Monocytes % 13.6 H Eosinophils % 0.2 Basophils % 0.3 Nucleated Red Blood Cells % 1.0 H Neutrophils # 7.7 H Lymphocytes # 0.9 Monocytes # 1.4 H Eosinophils # 0.0 Basophils # 0.0 Nucleated Red Blood Cells # 0.1 H Prothrombin Time 17.6 H Prothrombin Time Ratio 1.4 INR International Normalized Ratio 1.44 Sodium Level 131 L Potassium Level 4.0 Chloride Level 105 Carbon Dioxide Level 23 Anion Gap 7 L Blood Urea Nitrogen 26 H Creatinine 0.80 Glucose Level 169 Calcium Level 7.1 L Medications Medications Current Medications Sodium Chloride (NS) 1,000 ml @ 70 mls/hr [id number] IV Last administered on 06/22 17:53; Admin Dose 70 MLS/HR; Start 06/20/17 at 22:59 Ondansetron HCl (Zofran Inj) 4 mg Q6H PRN IV NAUSEA AND/OR VOMITING; Start 06/20/17 at 23:00 Morphine Sulfate 2 mg 2 mg Q4H PRN IV PAIN LEVEL 7-10 Last administered on 06/22 08:17; Admin Dose 2 MG; Start 06/20/17 at 23:00 Pantoprazole 80 mg/Sodium Chloride 100 ml @ 10 mls/hr Q10H IV Last administered on 06/22/17 15:30; Admin Dose 10 MLS/HR; Start 06/20/17 at 23:30 Octreotide Acetate 1 mg/ Sodium Chloride 100 ml @ 5 mls/hr Q20H IV Last administered on 06/22/17 15:30; Admin Dose 5 MLS/HR; Start 06/20/17 at 23:30 Piperacillin Sod/ Tazobactam Sod (Zosyn 3.375gm/ 100 ml (Pmx)) 100 ml @ 200 mls /hr Q8 IVPB Last administered on 06/22/17 13:33; Admin Dose 200 MLS/HR; Start 06/21/17 at 22:00 Sucralfate 1 gm 1 gm QID PO Last administered on 06/22/17 17:45; Admin Dose 1 GM; Start 06/21/17 at 21:00 Vancomycin HCl (Vancocin) 250 ml @ 125 mls/hr Q12H IVPB ; Start 06/22/17 at 20: 00 Miscellaneous Information (*Rx Drug Level Order Reminder*) VANCOMYCIN TROUGH AT 0700 ONCE ONCE XX ; Start 06/23/17 at 07:00; Stop 06/23/17 at 07:01 NATE CASTRO MD Jun 22, 2017 19:45
[2017-06-22] MEDS: VANCOMYCIN 1 GM in NS 250 ML IVPB SCH (20:30)
[2017-06-23] VITALS (12 sets, daily range): BP systolic 101–119; BP diastolic 57–70; PULSE 95–108; RESP 16–84
[2017-06-23 00:49] LABS: HEMATOCRIT 24.2 % (42.0-52.0); HEMOGLOBIN 7.9 g/dl (14.0-18.0)
[2017-06-23] MEDS: PANTOPRAZOLE IV 80 MG in SOD CHLORIDE 0.9% 100 ML IV SCH ×3 (01:30→15:06)
[2017-06-23] MEDS: morphine 2 MG INJ IV PRN ×3 (01:44→19:48)
[2017-06-23] MEDS: PIPER-TAZO 3.375 GM IV (PMX) 100 ML IVPB SCH ×2 (05:54→15:06)
[2017-06-23 07:22] LABS: HEMATOCRIT 24.8 % (42.0-52.0); HEMOGLOBIN 7.8 g/dl (14.0-18.0)
[2017-06-23 08:00] LABS: ALBUMIN 2.2 g/dl (3.3-4.9); ALBUMIN/GLOBULIN RATIO 0.61; BILIRUBIN,DIRECT 0.7 mg/dl (0.00-0.20); BILIRUBIN,INDIRECT 1.2 mg/dl (0-1.1); BILIRUBIN,TOTAL 1.9 mg/dl (0.2-1.3); CALCIUM 7.3 mg/dl (8.4-10.2); CREATININE 0.78 mg/dl (0.61-1.24); POTASSIUM 4.3 mmol/L (3.5-5.1); TOTAL PROTEIN 5.8 g/dl (6.1-8.1)
[2017-06-23] MEDS: VANCOMYCIN 1 GM in NS 250 ML IVPB SCH (08:44)
[2017-06-23] MEDS: SUCRALFATE (100 MG/ML) 10ML CUP PO SCH ×4 (08:44→21:57)
[2017-06-23] MEDS ORDERED: LIDOCAINE 1% (MPF) 5 ML VIAL ONE (11:34)
[2017-06-23] MEDS: OCTREOTIDE 1 MG in SOD CHLORIDE 0.9% 95 ML IV SCH (12:26)
--- NOTE | 2017-06-23 13:39 | RADRPT ---
PROCEDURE: Ultrasound guided paracentesis. CLINICAL INDICATION: Ascites and shortness of breath. COMPARISON: No prior studies are available for comparison. TECHNIQUE: The risks, benefits, and alternatives were explained to the patient and/or the patient's family, inc luding but not limited to bleeding, infection, pain, visceral or vascular damage, shock, and . The patient and/or the patient's family understood the risks and the alternatives and wished to pro ceed with the procedure. Informed written consent was obtained. A procedural time out was performed . The patient's name, date of , and procedure to be performed were verified. Utilizing ultrasound guidance, optimal location for entry to the peritoneal cavity was ascertained. The overlying skin was prepped and draped in the usual sterile fashion. Approximately 10 ml of 1% Xylocaine was injected locally for pain control. Using ultrasound guidance, an 8 [place] catheter wa s introduced into the peritoneal cavity in the right lower quadrant without difficulty. FINDINGS: Initial images demonstrate ascites. Approximately 5.0 liters of serous fluid was aspirated and sent back with the patient. The patient tolerated the procedure well without complication. IMPRESSION: 1. Successful ultrasound-guided paracentesis. RPTAT: QQ .Kash Hall MD, Date Time Electronically viewed and signed by .Kash Hall MD, MD on 06/23/2017 13:38 .R/
[2017-06-23] MEDS: SOD CHLORIDE 0.9% 1,000 ML IV SCH ×2 (15:06→22:01)
[2017-06-23 15:31] LABS: FLD MN% 62.4 %; FLD PMN% 37.6 %; FLD RBC 0 /uL; FLD WBC 239 /cmm
[2017-06-23 15:35] LABS: FLUID TYPE PARACENTESIS FLUID
--- NOTE | 2017-06-23 15:38 | PN ---
Date/Time of Note Date/Time of Note DATE: 06/23/17 TIME: 15:30 Assessment/Plan VTE Prophylaxis VTE Prophylaxis Intervention: contraindicated, SCD's Lines/Catheters IV Catheter Type (from Nrsg): Peripheral IV Assessment/Plan Assessment/Plan 1. Upper GI bleed secondary to esophageal varices - GI on board and consultation appreciated - EGD performed yesterday with findings of grade I/IV esophageal varices, previous EVL, and severe portal hypertensive gastropathy. biopsy obtained to rule out Hpylori - Patient changed to PO Protonix and drips d/c per GI - monitor for further episodes of hematemesis or melena/hemotochezia 2. Anemia secondary to cirrhosis and blood loss - H/H q6hr. 7.8 today with no acute bleeding appreciated. Will continue monitoring - H/H this am <7 and transfused 2 units. Will continue monitoring and transfuse as needed - If <7.5 will give 1 unit PRBC and <7 give 2 units 3. Cirrhosis 2/2 alcohol abuse - will start on Spironolactone 4. HCC s/p TACE and reportedly on systemic chemo - currently undergoing treatment - Surgery on board and recommendations appreciated - If patient has extended stay will get Heme/Onc on board as well 5. Ascites - s/p paracentesis - Will switch to ceftriaxone for SBP prophylaxis Subjective 24 Hr Interval Summary Free Text/Dictation Patient states experiencing some relief after paracentesis performed but experiencing discomfort at puncture site. No acute overnight events. Exam/Review of Systems Vital Signs Vitals Vital Signs Date Time Temp Pulse Resp B/P Pulse Ox O2 Delivery O2 Flow Rate FiO2 06/23/17 15:20 98.1 92 16 101/57 96 06/23/17 05:59 Room Air Intake and Output 06/22/17 06/22/17 06/23/17 15:00 23:00 07:00 Intake Total 100 ml 1405 ml Output Total 400 ml Balance 100 ml 1005 ml Exam General: NAD, mild distress secondary to pain HEENT: NC/AT, PERRL, EOM intact Neck: Supple with full range of motion Lungs: Clear to auscultation bilaterally no crackles rales or wheezing Heart: Normal S1-S2, Regular rhythm and rate. Abdomen: Soft, slightly distended abdomen but not tense, normal bowel sounds Extremities: Normal to inspection, no edema no cyanosis Neurologic: Normal mental status, speech normal, cranial nerves II through XII are intact, motor and sensory are intact, no focal weakness physical exam, Results Result Diagram: 06/23/17 0709 06/23/17 0622 Results 24 hrs Laboratory Tests Test 06/22/17 18:09 06/23/17 00:18 06/23/17 06:20 06/23/17 06:22 Hemoglobin 8.8 L 7.9 L Hematocrit 26.9 L 24.2 L Lab Scanned Report BLOOD TRANSFUSION Sodium Level 131 L Potassium Level 4.3 Chloride Level 105 Carbon Dioxide Level 25 Anion Gap 5 L Blood Urea Nitrogen 20 Creatinine 0.78 Glucose Level 113 # Calcium Level 7.3 L Magnesium Level 2.1 Total Bilirubin 1.9 H Direct Bilirubin 0.70 H Indirect Bilirubin 1.2 H Aspartate Amino Transf (AST/SGOT) 937 H Alanine Aminotransferase (ALT/SGPT) 163 H Alkaline Phosphatase 297 H Total Protein 5.8 L Albumin 2.2 L Globulin 3.60 H Albumin/Globulin Ratio 0.61 Test 06/23/17 06:57 06/23/17 07:09 Vancomycin Level Trough 9.9 L Hemoglobin 7.8 L Hematocrit 24.8 L Medications Medications Current Medications Sodium Chloride (NS) 1,000 ml @ 70 mls/hr [id number] IV Last administered on 06/22 17:53; Admin Dose 70 MLS/HR; Start 06/20/17 at 22:59 Ondansetron HCl (Zofran Inj) 4 mg Q6H PRN IV NAUSEA AND/OR VOMITING; Start 06/20/17 at 23:00 Morphine Sulfate 2 mg 2 mg Q4H PRN IV PAIN LEVEL 7-10 Last administered on 06/23 06:05; Admin Dose 2 MG; Start 06/20/17 at 23:00 Pantoprazole 80 mg/Sodium Chloride 100 ml @ 10 mls/hr Q10H IV Last administered on 06/23/17 03:19; Admin Dose 10 MLS/HR; Start 06/20/17 at 23:30 Octreotide Acetate 1 mg/ Sodium Chloride 100 ml @ 5 mls/hr Q20H IV Last administered on 06/23/17 12:26; Admin Dose 5 MLS/HR; Start 06/20/17 at 23:30 Piperacillin Sod/ Tazobactam Sod (Zosyn 3.375gm/ 100 ml (Pmx)) 100 ml @ 200 mls /hr Q8 IVPB Last administered on 06/23/17 05:54; Admin Dose 200 MLS/HR; Start 06/21/17 at 22:00 Sucralfate 1 gm 1 gm QID PO Last administered on 06/23/17 12:35; Admin Dose 1 GM; Start 06/21/17 at 21:00 Vancomycin HCl/ Sodium Chloride (Vancocin/NS) 250 ml @ 83.333 mls/ hr Q12H IVPB ; Start 06/23/17 at 21:00 GAYATHRI CUTLER MD Jun 23, 2017 15:38
[2017-06-23 15:42] LABS: FLD CLARITY SLIGHTLY CLOUDY; FLD COLOR YELLOW; FLD TYPE PARACENTHESIS
[2017-06-23 15:43] LABS: PATH REVIEW? YES
[2017-06-23 15:47] LABS: FLUID AMYLASE < 30 U/L; FLUID LD 376 U/L; FLUID TOTAL PROTEIN < 2.0 g/dl; FLUID TYPE PARACENTESIS FLUID
[2017-06-23] MEDS: SPIRONOLACTONE 25 MG TAB PO SCH (17:35)
[2017-06-23] MEDS: CEFTRIAXONE 1 GM/50 ML (PMX) 50 ML IVPB SCH (17:38)
[2017-06-23 18:27] LABS: HEMATOCRIT 24.6 % (42.0-52.0); HEMOGLOBIN 8.1 g/dl (14.0-18.0)
--- NOTE | 2017-06-23 20:44 | PN ---
Date/Time of Note Date/Time of Note DATE: 06/23/17 TIME: 20:43 Assessment/Plan VTE Prophylaxis VTE Prophylaxis Intervention: SCD's Lines/Catheters IV Catheter Type (from Nrs): Peripheral IV Assessment/Plan Chief Complaint/Hosp Course Assessment: GI bleeding/hematemesis/melena EGD * Grade I/IV esophageal varices * Evidence of previous EVL * Most severe portal hypertensive gastropathy likely source of bleeding due to extreme friability * Rule out H. 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 * History of esophageal varices post endoscopic variceal ligation * Ascites/increasing * Mild coagulopathy * Multifocal hepatocellular carcinoma * History of alcohol abuse Plan: Continue present regimen Protonix 40 mg daily Once stable discharge to be followed by his physicians at [facility] which is a TIPS capable institution Subjective: Course reviewed with nursing staff Patient interviewed and examined All labs, imaging and other results reviewed The patient reports significant improvement post paracentesis No evidence of overt gastrointestinal bleeding Tolerating diet Exam: General: well developed, well nourished, alert and oriented x3 , in no acute distress Skin: No lesions, no stigmata chronic liver disease, no evidence of bleeding diathesis Lymphatic: No palpable lymphadenopathy HEENT: No lesions Cardiovascular: Heart: Regular rate and rhythm, no murmurs, gallops or rubs. Peripheral pulses present within normal limits, no cyanosis, clubbing or edemas. No pulsatile abdominal mass Respiratory: Lungs clear to auscultation and percussion, no wheezing, no rubs Gastrointestinal and Liver: Abdomen: Soft, moderately tender, severely distended , no hernias, no masses, no organomegaly, large amount of ascites, no guarding, no rebound tenderness, normoactive bowel sounds. Extremities: No cyanosis, clubbing, or edema. Diagnostic Studies: Available data and images were reviewed personally. See reports. Significant results and findings are addressed here or in the assessment and plan. Problems: Exam/Review of Systems Vital Signs Vitals Vital Signs Date Time Temp Pulse Resp B/P Pulse Ox O2 Delivery O2 Flow Rate FiO2 06/23/17 20:08 97.6 84 84 106/65 95 06/23/17 05:59 Room Air Intake and Output 06/22/17 06/22/17 06/23/17 15:00 23:00 07:00 Intake Total 100 ml 1405 ml Output Total 400 ml Balance 100 ml 1005 ml Results Result Diagram: 06/23/17 1807 06/23/17 0622 Results 24 hrs Laboratory Tests Test 06/23/17 00:18 06/23/17 06:20 06/23/17 06:22 06/23/17 06:57 Hemoglobin 7.9 L Hematocrit 24.2 L Lab Scanned Report BLOOD TRANSFUSION Sodium Level 131 L Potassium Level 4.3 Chloride Level 105 Carbon Dioxide Level 25 Anion Gap 5 L Blood Urea Nitrogen 20 Creatinine 0.78 Glucose Level 113 # Calcium Level 7.3 L Magnesium Level 2.1 Total Bilirubin 1.9 H Direct Bilirubin 0.70 H Indirect Bilirubin 1.2 H Aspartate Amino Transf (AST/SGOT) 937 H Alanine Aminotransferase (ALT/SGPT) 163 H Alkaline Phosphatase 297 H Total Protein 5.8 L Albumin 2.2 L Globulin 3.60 H Albumin/Globulin Ratio 0.61 Vancomycin Level Trough 9.9 L Test 06/23/17 07:09 06/23/17 11:30 06/23/17 18:07 Hemoglobin 7.8 L 8.1 L Hematocrit 24.8 L 24.6 L Pathologist Review (Hematology) YES Body Fluid Type PARACENTHESIS Body Fluid Volume 1000.0 Body Fluid Color YELLOW Body Fluid Appearance SLIGHTLY CLOUDY Body Fluid WBC 239 Body Fluid RBC (Auto) 0 Body Fluid Polynuclear WBCs (%) 37.6 Body Fluid Mononuclear Cells % Auto 62.4 Body Fluid Total Protein < 2.0 Body Fluid Lactate Dehydrogenase 376 Body Fluid Amylase < 30 Medications Medications Current Medications Sodium Chloride (NS) 1,000 ml @ 70 mls/hr [id number] IV Last administered on 06/23 15:06; Admin Dose 70 MLS/HR; Start 06/20/17 at 22:59 Ondansetron HCl (Zofran Inj) 4 mg Q6H PRN IV NAUSEA AND/OR VOMITING; Start 06/20/17 at 23:00 Morphine Sulfate (morphine) 2 mg Q4H PRN IV PAIN LEVEL 7-10 Last administered on 06/23/17 19:48; Admin Dose 2 MG; Start 06/20/17 at 23:00 Sucralfate (Carafate Susp) 1 gm QID PO Last administered on 06/23/17 17:35; Admin Dose 1 GM; Start 06/21/17 at 21:00 Pantoprazole (Protonix Tab) 40 mg DAILY@06 PO ; Start 06/24/17 at 06:00 Spironolactone 25 mg 25 mg DAILY PO Last administered on 06/23/17 17:35; Admin Dose 25 MG; Start 06/23/17 at 16:00 Ceftriaxone Sodium (Rocephin) 50 ml @ 100 mls/hr Q24H IVPB Last administered on 06/23/17 17:38; Admin Dose 100 MLS/HR; Start 06/23/17 at 17:30 NATE CASTRO MD Jun 23, 2017 20:44
[2017-06-23] MEDS ORDERED: VANCOMYCIN 1.25 GM in SOD CHLORIDE 0.9% 250 ML IVPB SCH (21:00)
[2017-06-24] VITALS (12 sets, daily range): BP systolic 105–110; BP diastolic 55–66; PULSE 88–103; RESP 16–20
[2017-06-24 01:21] LABS: HEMATOCRIT 23.8 % (42.0-52.0); HEMOGLOBIN 7.9 g/dl (14.0-18.0)
[2017-06-24] MEDS: PANTOPRAZOLE (EC) 40 MG TAB PO SCH (06:00)
[2017-06-24 06:11] LABS: HEMATOCRIT 23.8 % (42.0-52.0); HEMOGLOBIN 7.9 g/dl (14.0-18.0)
[2017-06-24] MEDS: SOD CHLORIDE 0.9% 1,000 ML IV SCH (06:32)
[2017-06-24 07:15] LABS: ALBUMIN/GLOBULIN RATIO 0.64; BILIRUBIN,DIRECT 1.5 mg/dl (0.00-0.20); BILIRUBIN,INDIRECT 1.2 mg/dl (0-1.1); BILIRUBIN,TOTAL 2.7 mg/dl (0.2-1.3); CALCIUM 6.8 mg/dl (8.4-10.2); CREATININE 0.67 mg/dl (0.61-1.24); POTASSIUM 3.8 mmol/L (3.5-5.1); TOTAL PROTEIN 5.1 g/dl (6.1-8.1)
[2017-06-24] MEDS: SUCRALFATE (100 MG/ML) 10ML CUP PO SCH ×4 (08:37→21:11)
[2017-06-24] MEDS: SPIRONOLACTONE 25 MG TAB PO SCH (08:37)
[2017-06-24] MEDS: morphine 2 MG INJ IV PRN ×2 (11:54→19:42)
[2017-06-24 12:15] LABS: HEMATOCRIT 23.6 % (42.0-52.0); HEMOGLOBIN 7.7 g/dl (14.0-18.0)
--- NOTE | 2017-06-24 14:06 | PN ---
Date/Time of Note Date/Time of Note DATE: 06/24/17 TIME: 14:00 Assessment/Plan VTE Prophylaxis VTE Prophylaxis Intervention: contraindicated Lines/Catheters IV [facility]ter Type (from [facility]): Peripheral IV Urinary Cath still in place: No Assessment/Plan Assessment/Plan 1. Upper GI bleed secondary to esophageal varices - GI on board and consultation appreciated. Patient continue on PO Protonix and Sucralfate - EGD findings of grade I/IV esophageal varices, previous EVL, and severe portal hypertensive gastropathy. biopsy obtained to rule out Hpylori - monitor for further episodes of hematemesis or melena/hemotochezia 2. Anemia secondary to cirrhosis and blood loss - hgb appears to be stabilizing at 7.9. Will check one more time at 1600 then daily until discharged - H/H this am <7 and transfused 2 units. Will continue monitoring and transfuse as needed - If <7.5 will give 1 unit PRBC and <7 give 2 units 3. Cirrhosis 2/2 alcohol abuse - Started on Spironolactone and tolerating well 4. HCC s/p TACE and reportedly on systemic chemo - currently undergoing treatment - Surgery on board and recommendations appreciated - Will advise to follow up with Heme/Onc upon discharge - Advised to seek transplant as well 5. Ascites - s/p paracentesis - Will switch to ceftriaxone for SBP prophylaxis 6. Disposition - If remains stable today, will d/c in am Subjective 24 Hr Interval Summary Free Text/Dictation Patient c/o mild epigastric discomfort but states abdomen has improved after paracentesis. Denies any other complaints and no acute overnight events. Exam/Review of Systems Vital Signs Vitals Vital Signs Date Time Temp Pulse Resp B/P Pulse Ox O2 Delivery O2 Flow Rate FiO2 06/24/17 12:32 95 06/24/17 11:23 98.1 16 105/61 94 06/23/17 05:59 Room Air Intake and Output 06/23/17 06/23/17 06/24/17 15:00 23:00 07:00 Intake Total 305 ml 600 ml 1080 ml Output Total 700 ml 350 ml Balance 305 ml -100 ml 730 ml Exam General: NAD, mild distress due to epigastric pain. awake and alert HEENT: NC/AT, PERRL, EOM intact Neck: Supple with full range of motion Lungs: Clear to auscultation bilaterally no crackles rales or wheezing Heart: Normal S1-S2, Regular rhythm and rate. no murmurs Abdomen: Soft, slightly distended abdomen but not tense, normal bowel sounds Extremities: Normal to inspection, no edema no cyanosis Neurologic: Normal mental status, speech normal, cranial nerves II through XII are intact, motor and sensory are intact, no focal weakness physical exam, Results Result Diagram: 06/24/17 1202 06/24/17 0540 Results 24 hrs Laboratory Tests Test 06/23/17 18:07 06/24/17 00:42 06/24/17 05:29 06/24/17 05:40 Hemoglobin 8.1 L 7.9 L 7.9 L Hematocrit 24.6 L 23.8 L 23.8 L Lab Scanned Report BLOOD TRANSFUSION Sodium Level 129 L Potassium Level 3.8 Chloride Level 105 Carbon Dioxide Level 22 Anion Gap 6 L Blood Urea Nitrogen 17 Creatinine 0.67 Glucose Level 86 Calcium Level 6.8 L Magnesium Level 2.1 Total Bilirubin 2.7 H Direct Bilirubin 1.50 #H Indirect Bilirubin 1.2 H Aspartate Amino Transf (AST/SGOT) 544 H Alanine Aminotransferase (ALT/SGPT) 129 H Alkaline Phosphatase 276 H Total Protein 5.1 L Albumin 2.0 L Globulin 3.10 Albumin/Globulin Ratio 0.64 Test 06/24/17 12:02 Hemoglobin 7.7 L Hematocrit 23.6 L Medications Medications Current Medications Sodium Chloride (NS) 1,000 ml @ 70 mls/hr [id number] IV Last administered on 06/24 06:32; Admin Dose 70 MLS/HR; Start 06/20/17 at 22:59 Ondansetron HCl (Zofran Inj) 4 mg Q6H PRN IV NAUSEA AND/OR VOMITING; Start 06/20/17 at 23:00 Morphine Sulfate (morphine) 2 mg Q4H PRN IV PAIN LEVEL 7-10 Last administered on 06/24/17 11:54; Admin Dose 2 MG; Start 06/20/17 at 23:00 Sucralfate (Carafate Susp) 1 gm QID PO Last administered on 06/24/17 08:37; Admin Dose 1 GM; Start 06/21/17 at 21:00 Pantoprazole (Protonix Tab) 40 mg DAILY@06 PO Last administered on 06/24/17 06 :00; Admin Dose 40 MG; Start 06/24/17 at 06:00 Spironolactone 25 mg 25 mg DAILY PO Last administered on 06/24/17 08:37; Admin Dose 25 MG; Start 06/23/17 at 16:00 Ceftriaxone Sodium (Rocephin) 50 ml @ 100 mls/hr Q24H IVPB Last administered on 06/23/17 17:38; Admin Dose 100 MLS/HR; Start 06/23/17 at 17:30 GAYATHRI CUTLER MD Jun 24, 2017 14:06
[2017-06-24] MEDS: CEFTRIAXONE 1 GM/50 ML (PMX) 50 ML IVPB SCH (18:25)
[2017-06-24 18:28] LABS: HEMATOCRIT 25.3 % (42.0-52.0); HEMOGLOBIN 8.3 g/dl (14.0-18.0)
--- NOTE | 2017-06-24 19:45 | PN ---
Date/Time of Note Date/Time of Note DATE: 06/24/17 TIME: 19:43 Assessment/Plan VTE Prophylaxis VTE Prophylaxis Intervention: SCD's Lines/Catheters IV Catheter Type (from [facility]): [place] Urinary Cath still in place: No Assessment/Plan Chief Complaint/Hosp Course Assessment: GI bleeding/hematemesis/melena EGD * Grade I/IV esophageal varices * Evidence of previous EVL * Most severe portal hypertensive gastropathy likely source of bleeding due to extreme friability * Rule out H. 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 * History of esophageal varices post endoscopic variceal ligation * Ascites/increasing * Mild coagulopathy * Multifocal hepatocellular carcinoma * History of alcohol abuse Plan: Continue present regimen Protonix 40 mg daily Once stable discharge to be followed by his physicians at [facility] which is a TIPS capable institution Subjective: Course reviewed with nursing staff Patient interviewed and examined All labs, imaging and other results reviewed The patient reports less abdominal pain No evidence of overt gastrointestinal bleeding Tolerating diet Patient should be evaluated for TIPS as bleeding will continue unless portal decompression is achieved Exam: General: well developed, well nourished, alert and oriented x3 , in no acute distress Skin: No lesions, no stigmata chronic liver disease, no evidence of bleeding diathesis Lymphatic: No palpable lymphadenopathy HEENT: No lesions Cardiovascular: Heart: Regular rate and rhythm, no murmurs, gallops or rubs. Peripheral pulses present within normal limits, no cyanosis, clubbing or edemas. No pulsatile abdominal mass Respiratory: Lungs clear to auscultation and percussion, no wheezing, no rubs Gastrointestinal and Liver: Abdomen: Soft, mildly tender, moderately distended, no hernias, no masses, no organomegaly, large amount of ascites, no guarding, no rebound tenderness, normoactive bowel sounds. Extremities: No cyanosis, clubbing, or edema. Diagnostic Studies: Available data and images were reviewed personally. See reports. Significant results and findings are addressed here or in the assessment and plan. Problems: Exam/Review of Systems Vital Signs Vitals Vital Signs Date Time Temp Pulse Resp B/P Pulse Ox O2 Delivery O2 Flow Rate FiO2 06/24/17 16:13 88 06/24/17 15:06 98.0 16 109/55 98 06/23/17 05:59 Room Air Intake and Output 06/23/17 06/23/17 06/24/17 15:00 23:00 07:00 Intake Total 305 ml 600 ml 1080 ml Output Total 700 ml 350 ml Balance 305 ml -100 ml 730 ml Results Result Diagram: 06/24/17 1822 06/24/17 0540 Results 24 hrs Laboratory Tests Test 06/24/17 00:42 06/24/17 05:29 06/24/17 05:40 06/24/17 12:02 Hemoglobin 7.9 L 7.9 L 7.7 L Hematocrit 23.8 L 23.8 L 23.6 L Lab Scanned Report BLOOD TRANSFUSION Sodium Level 129 L Potassium Level 3.8 Chloride Level 105 Carbon Dioxide Level 22 Anion Gap 6 L Blood Urea Nitrogen 17 Creatinine 0.67 Glucose Level 86 Calcium Level 6.8 L Magnesium Level 2.1 Total Bilirubin 2.7 H Direct Bilirubin 1.50 #H Indirect Bilirubin 1.2 H Aspartate Amino Transf (AST/SGOT) 544 H Alanine Aminotransferase (ALT/SGPT) 129 H Alkaline Phosphatase 276 H Total Protein 5.1 L Albumin 2.0 L Globulin 3.10 Albumin/Globulin Ratio 0.64 Test 06/24/17 18:22 Hemoglobin 8.3 L Hematocrit 25.3 L Medications Medications Current Medications Sodium Chloride (NS) 1,000 ml @ 70 mls/hr [id number] IV Last administered on 06/24 06:32; Admin Dose 70 MLS/HR; Start 06/20/17 at 22:59 Ondansetron HCl (Zofran Inj) 4 mg Q6H PRN IV NAUSEA AND/OR VOMITING; Start 06/20/17 at 23:00 Morphine Sulfate (morphine) 2 mg Q4H PRN IV PAIN LEVEL 7-10 Last administered on 06/24/17 19:42; Admin Dose 2 MG; Start 06/20/17 at 23:00 Sucralfate (Carafate Susp) 1 gm QID PO Last administered on 06/24/17 18:25; Admin Dose 1 GM; Start 06/21/17 at 21:00 Pantoprazole (Protonix Tab) 40 mg DAILY@06 PO Last administered on 06/24/17 06 :00; Admin Dose 40 MG; Start 06/24/17 at 06:00 Spironolactone 25 mg 25 mg DAILY PO Last administered on 06/24/17 08:37; Admin Dose 25 MG; Start 06/23/17 at 16:00 Ceftriaxone Sodium (Rocephin) 50 ml @ 100 mls/hr Q24H IVPB Last administered on 06/24/17 18:25; Admin Dose 100 MLS/HR; Start 06/23/17 at 17:30 NATE CASTRO MD Jun 24, 2017 19:45
[2017-06-25] VITALS (12 sets, daily range): BP systolic 107–122; BP diastolic 61–76; PULSE 91–102; RESP 17–20
[2017-06-25] MEDS: morphine 2 MG INJ IV PRN ×3 (01:48→20:53)
[2017-06-25] MEDS: SOD CHLORIDE 0.9% 1,000 ML IV SCH (01:49)
[2017-06-25] MEDS: PANTOPRAZOLE (EC) 40 MG TAB PO SCH (05:09)
[2017-06-25 07:18] LABS: BASOPHILS % 0.2 % (0.0-2.0); EOSINOPHILS # 0.1 10^3/ul (0.0-0.5); EOSINOPHILS % 0.6 % (0.0-7.0); HEMATOCRIT 25.9 % (42.0-52.0); HEMOGLOBIN 8.5 g/dl (14.0-18.0); LYMPHOCYTES # 0.8 10^3/ul (0.8-2.9); LYMPHOCYTES % 8.1 % (15.0-51.0); MEAN CORPUSCULAR HEMOGLOBIN 29.4 pg (29.0-33.0); MEAN CORPUSCULAR HGB CONC 32.8 g/dl (32.0-37.0); MEAN CORPUSCULAR VOLUME 89.6 fl (82.0-101.0); MEAN PLATELET VOLUME 9.8 fl (7.4-10.4); MONOCYTE # 1.5 10^3/ul (0.3-0.9); MONOCYTES % 14.5 % (0.0-11.0); NEUTROPHIL # 7.6 10^3/ul (1.6-7.5); NEUTROPHILS % 74.7 % (39.0-77.0); NUCLEATED RED BLOOD CELLS% 0.2 /100WBC (0.0-0.0); PLATELET COUNT 143 10^3/UL (140-415); RED BLOOD COUNT 2.89 10^6/ul (4.70-6.10); RED CELL DISTRIBUTION WIDTH 17.1 % (11.5-14.5); WHITE BLOOD COUNT 10.1 10^3/ul (4.8-10.8)
[2017-06-25 07:43] LABS: ALBUMIN 2.2 g/dl (3.3-4.9); ALBUMIN/GLOBULIN RATIO 0.57; BILIRUBIN,DIRECT 1.6 mg/dl (0.00-0.20); BILIRUBIN,INDIRECT 1.2 mg/dl (0-1.1); BILIRUBIN,TOTAL 2.8 mg/dl (0.2-1.3); CALCIUM 7.1 mg/dl (8.4-10.2); CREATININE 0.69 mg/dl (0.61-1.24); POTASSIUM 3.4 mmol/L (3.5-5.1)
[2017-06-25] MEDS: SPIRONOLACTONE 25 MG TAB PO SCH (08:52)
[2017-06-25] MEDS: SUCRALFATE (100 MG/ML) 10ML CUP PO SCH ×4 (08:52→20:53)
[2017-06-25] MEDS ORDERED: POTASSIUM CHLORIDE (SR) 20 MEQ TAB PO STA (11:22)
--- NOTE | 2017-06-25 11:28 | PN ---
Date/Time of Note Date/Time of Note DATE: 06/25/17 TIME: 11:27 Assessment/Plan VTE Prophylaxis VTE Prophylaxis Intervention: SCD's Lines/Catheters IV Catheter Type (from [facility]): Peripheral IV Urinary Cath still in place: No Assessment/Plan Chief Complaint/Hosp Course Assessment: GI bleeding/hematemesis/melena EGD * Grade I/IV esophageal varices * Evidence of previous EVL * Most severe portal hypertensive gastropathy likely source of bleeding due to extreme friability * Rule out H. 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 * History of esophageal varices post endoscopic variceal ligation * Ascites/increasing * Mild coagulopathy * Multifocal hepatocellular carcinoma * History of alcohol abuse Plan: Continue present regimen Protonix 40 mg daily Once stable discharge to be followed by his physicians at [facility] which is a TIPS capable institution Subjective: Course reviewed with nursing staff Patient interviewed and examined All labs, imaging and other results reviewed The patient reports less abdominal pain No evidence of overt gastrointestinal bleeding H&H stable for the last 48 hours Tolerating diet Patient should be evaluated for TIPS as bleeding will continue unless portal decompression is achieved Exam: General: well developed, well nourished, alert and oriented x3 , in no acute distress Skin: No lesions, no stigmata chronic liver disease, no evidence of bleeding diathesis Lymphatic: No palpable lymphadenopathy HEENT: No lesions Cardiovascular: Heart: Regular rate and rhythm, no murmurs, gallops or rubs. Peripheral pulses present within normal limits, no cyanosis, clubbing or edemas. No pulsatile abdominal mass Respiratory: Lungs clear to auscultation and percussion, no wheezing, no rubs Gastrointestinal and Liver: Abdomen: Soft, mildly tender, moderately distended, no hernias, no masses, no organomegaly, large amount of ascites, no guarding, no rebound tenderness, normoactive bowel sounds. Extremities: No cyanosis, clubbing, or edema. Diagnostic Studies: Available data and images were reviewed personally. See reports. Significant results and findings are addressed here or in the assessment and plan. Problems: Exam/Review of Systems Vital Signs Vitals Vital Signs Date Time Temp Pulse Resp B/P Pulse Ox O2 Delivery O2 Flow Rate FiO2 06/25/17 08:10 96 06/25/17 07:56 97.6 18 116/76 96 06/23/17 05:59 Room Air Intake and Output 06/24/17 06/24/17 06/25/17 15:00 23:00 07:00 Intake Total 860 ml 1320 ml Balance 860 ml 1320 ml Results Result Diagram: 06/25/17 0637 06/25/17 0637 Results 24 hrs Laboratory Tests Test 06/24/17 12:02 06/24/17 18:22 06/25/17 06:37 Hemoglobin 7.7 L 8.3 L 8.5 L Hematocrit 23.6 L 25.3 L 25.9 L White Blood Count 10.1 Red Blood Count 2.89 L Mean Corpuscular Volume 89.6 Mean Corpuscular Hemoglobin 29.4 Mean Corpuscular Hemoglobin Concent 32.8 Red Cell Distribution Width 17.1 H Platelet Count 143 # Mean Platelet Volume 9.8 Neutrophils % 74.7 Lymphocytes % 8.1 L Monocytes % 14.5 H Eosinophils % 0.6 Basophils % 0.2 Nucleated Red Blood Cells % 0.2 H Neutrophils # 7.6 H Lymphocytes # 0.8 Monocytes # 1.5 H Eosinophils # 0.1 Basophils # 0.0 Nucleated Red Blood Cells # 0.0 Sodium Level 127 L Potassium Level 3.4 L Chloride Level 103 Carbon Dioxide Level 21 Anion Gap 6 L Blood Urea Nitrogen 18 Creatinine 0.69 Glucose Level 98 Calcium Level 7.1 L Magnesium Level 2.1 Total Bilirubin 2.8 H Direct Bilirubin 1.60 H Indirect Bilirubin 1.2 H Aspartate Amino Transf (AST/SGOT) 294 H Alanine Aminotransferase (ALT/SGPT) 120 H Alkaline Phosphatase 307 H Total Protein 6.0 L Albumin 2.2 L Globulin 3.80 H Albumin/Globulin Ratio 0.57 Medications Medications Current Medications Sodium Chloride (NS) 1,000 ml @ 70 mls/hr [id number] IV Last administered on 06/25 01:49; Admin Dose 70 MLS/HR; Start 06/20/17 at 22:59 Ondansetron HCl (Zofran Inj) 4 mg Q6H PRN IV NAUSEA AND/OR VOMITING; Start 06/20/17 at 23:00 Morphine Sulfate (morphine) 2 mg Q4H PRN IV PAIN LEVEL 7-10 Last administered on 06/25/17 06:01; Admin Dose 2 MG; Start 06/20/17 at 23:00 Sucralfate (Carafate Susp) 1 gm QID PO Last administered on 06/25/17 08:52; Admin Dose 1 GM; Start 06/21/17 at 21:00 Pantoprazole (Protonix Tab) 40 mg DAILY@06 PO Last administered on 06/25/17 05 :09; Admin Dose 40 MG; Start 06/24/17 at 06:00 Spironolactone 25 mg 25 mg DAILY PO Last administered on 06/25/17 08:52; Admin Dose 25 MG; Start 06/23/17 at 16:00 Ceftriaxone Sodium (Rocephin) 50 ml @ 100 mls/hr Q24H IVPB Last administered on 06/24/17 18:25; Admin Dose 100 MLS/HR; Start 06/23/17 at 17:30 NATE CASTRO MD Jun 25, 2017 11:28
[2017-06-25] MEDS ORDERED: FUROSEMIDE 40 MG INJ IV SCH (13:00)
--- NOTE | 2017-06-25 13:11 | PN ---
Date/Time of Note Date/Time of Note DATE: 06/25/17 TIME: 12:53 Assessment/Plan VTE Prophylaxis VTE Prophylaxis Intervention: anti-embolic stocking Lines/Catheters IV Catheter Type (from Nrs): Peripheral IV Urinary Cath still in place: No Assessment/Plan Assessment/Plan 1. Upper GI bleed secondary to esophageal varices - GI on board and consultation appreciated. Patient continue on PO Protonix and Sucralfate - EGD findings of grade I/IV esophageal varices, previous EVL, and severe portal hypertensive gastropathy. - monitor for further episodes of hematemesis or melena/hemotochezia - Biopsy negative for Hpylori - Discussed with patient and daughter at bedside to discuss TIPS with his GI specialist at [place] to prevent further bleeding. 2. Anemia secondary to cirrhosis and blood loss - hgb appears to be stabilizing at 8.5. - H/H this am <7 and transfused 2 units. Will continue monitoring and transfuse as needed - If <7.5 will give 1 unit PRBC and <7 give 2 units 3. Cirrhosis 2/2 alcohol abuse - Started on Spironolactone and tolerating well. Will increase dose to 50mg - Will add Lasix 80 IV to help diurese more fluid and if tolerating will switched to 40mg PO daily 4. HCC s/p TACE and reportedly on systemic chemo - currently undergoing treatment - Surgery on board and recommendations appreciated - Will advise to follow up with Heme/Onc upon discharge - Per daughter, they were told he is not a surgical candidate due to advanced stage of his disease 5. Ascites - s/p paracentesis - Will start on Cipro daily for SBP prophylaxis 6. Disposition - Will advance diet and if no acute issues, will d/c tmrw Subjective 24 Hr Interval Summary Free Text/Dictation Patient states experiencing upper back pain since last night that appear to be muscle spasms from hospital bed. States feeling better but still feels as if abdomen is distended. Denies any further episodes of hematemesis or blood in stool No acute overnight events and no new complaints. Daughter at bedside and spent time explaining patients condition and disease process. Exam/Review of Systems Vital Signs Vitals Vital Signs Date Time Temp Pulse Resp B/P Pulse Ox O2 Delivery O2 Flow Rate FiO2 06/25/17 11:47 97.8 93 18 114/72 95 06/23/17 05:59 Room Air Intake and Output 06/24/17 06/24/17 06/25/17 14:59 22:59 06:59 Intake Total 860 ml 1320 ml Balance 860 ml 1320 ml Exam General: NAD, mild discomfort due to upper back pain HEENT: NC/AT, PERRL, EOM intact Neck: Supple with full range of motion Lungs: Clear to auscultation bilaterally no crackles rales or wheezing Heart: Normal S1-S2, Regular rhythm and rate. no murmurs Abdomen: Soft, slightly distended abdomen, not tense normal bowel sounds Extremities: Normal to inspection, no edema no cyanosis Neurologic: Normal mental status, speech normal, cranial nerves II through XII are intact, motor and sensory are intact, no focal weakness physical exam, Results Result Diagram: 06/25/1737 06/25/17636 Results 24 hrs Laboratory Tests Test 06/24/17 18:22 06/25/17 06:37 Hemoglobin 8.3 L 8.5 L Hematocrit 25.3 L 25.9 L White Blood Count 10.1 Red Blood Count 2.89 L Mean Corpuscular Volume 89.6 Mean Corpuscular Hemoglobin 29.4 Mean Corpuscular Hemoglobin Concent 32.8 Red Cell Distribution Width 17.1 H Platelet Count 143 # Mean Platelet Volume 9.8 Neutrophils % 74.7 Lymphocytes % 8.1 L Monocytes % 14.5 H Eosinophils % 0.6 Basophils % 0.2 Nucleated Red Blood Cells % 0.2 H Neutrophils # 7.6 H Lymphocytes # 0.8 Monocytes # 1.5 H Eosinophils # 0.1 Basophils # 0.0 Nucleated Red Blood Cells # 0.0 Sodium Level 127 L Potassium Level 3.4 L Chloride Level 103 Carbon Dioxide Level 21 Anion Gap 6 L Blood Urea Nitrogen 18 Creatinine 0.69 Glucose Level 98 Calcium Level 7.1 L Magnesium Level 2.1 Total Bilirubin 2.8 H Direct Bilirubin 1.60 H Indirect Bilirubin 1.2 H Aspartate Amino Transf (AST/SGOT) 294 H Alanine Aminotransferase (ALT/SGPT) 120 H Alkaline Phosphatase 307 H Total Protein 6.0 L Albumin 2.2 L Globulin 3.80 H Albumin/Globulin Ratio 0.57 Medications Medications Current Medications Sodium Chloride (NS) 1,000 ml @ 70 mls/hr [id number] IV Last administered on 06/25 01:49; Admin Dose 70 MLS/HR; Start 06/20/17 at 22:59 Ondansetron HCl (Zofran Inj) 4 mg Q6H PRN IV NAUSEA AND/OR VOMITING; Start 06/20/17 at 23:00 Morphine Sulfate (morphine) 2 mg Q4H PRN IV PAIN LEVEL 7-10 Last administered on 06/25/17 06:01; Admin Dose 2 MG; Start 06/20/17 at 23:00 Sucralfate (Carafate Susp) 1 gm QID PO Last administered on 06/25/17 12:38; Admin Dose 1 GM; Start 06/21/17 at 21:00 Pantoprazole (Protonix Tab) 40 mg DAILY@06 PO Last administered on 06/25/17 05 :09; Admin Dose 40 MG; Start 06/24/17 at 06:00 Spironolactone 25 mg 25 mg DAILY PO Last administered on 06/25/17 08:52; Admin Dose 25 MG; Start 06/23/17 at 16:00 Ceftriaxone Sodium (Rocephin) 50 ml @ 100 mls/hr Q24H IVPB Last administered on 06/24/17 18:25; Admin Dose 100 MLS/HR; Start 06/23/17 at 17:30 GAYATHRI CUTLER MD Jun 25, 2017 13:10
[2017-06-25] MEDS ORDERED: POTASSIUM CHLORIDE (SR) 10 MEQ TAB PO SCH (13:30)
[2017-06-25] MEDS: CIPROFLOXACIN 500 MG TAB PO SCH (13:30)
[2017-06-25] MEDS: FUROSEMIDE 40 MG INJ IV SCH (14:29)
[2017-06-26] VITALS (12 sets, daily range): BP systolic 114–119; BP diastolic 64–79; PULSE 91–104; RESP 19–20
[2017-06-26] MEDS: morphine 2 MG INJ IV PRN ×2 (01:25→21:06)
[2017-06-26] MEDS: PANTOPRAZOLE (EC) 40 MG TAB PO SCH (06:44)
[2017-06-26] MEDS: CIPROFLOXACIN 500 MG TAB PO SCH (06:44)
[2017-06-26] MEDS: SUCRALFATE (100 MG/ML) 10ML CUP PO SCH ×4 (08:11→20:56)
[2017-06-26] MEDS: POTASSIUM CHLORIDE (SR) 10 MEQ TAB PO SCH (08:12)
[2017-06-26] MEDS: FUROSEMIDE 40 MG INJ IV SCH (08:13)
[2017-06-26] MEDS ORDERED: SPIRONOLACTONE 25 MG TAB PO SCH (09:00)
[2017-06-26 09:23] LABS: BASOPHILS % 0.4 % (0.0-2.0); EOSINOPHILS # 0.2 10^3/ul (0.0-0.5); EOSINOPHILS % 2.3 % (0.0-7.0); HEMATOCRIT 27.1 % (42.0-52.0); HEMOGLOBIN 8.7 g/dl (14.0-18.0); LYMPHOCYTES # 1.4 10^3/ul (0.8-2.9); LYMPHOCYTES % 14.4 % (15.0-51.0); MEAN CORPUSCULAR HEMOGLOBIN 28.2 pg (29.0-33.0); MEAN CORPUSCULAR HGB CONC 32.1 g/dl (32.0-37.0); MEAN PLATELET VOLUME 9.7 fl (7.4-10.4); MONOCYTE # 1.4 10^3/ul (0.3-0.9); MONOCYTES % 14.6 % (0.0-11.0); NEUTROPHIL # 6.5 10^3/ul (1.6-7.5); PLATELET COUNT 154 10^3/UL (140-415); RED BLOOD COUNT 3.08 10^6/ul (4.70-6.10); RED CELL DISTRIBUTION WIDTH 17.1 % (11.5-14.5); WHITE BLOOD COUNT 9.7 10^3/ul (4.8-10.8)
[2017-06-26 09:46] LABS: ALBUMIN 2.5 g/dl (3.3-4.9); ALBUMIN/GLOBULIN RATIO 0.65; BILIRUBIN,DIRECT 2.2 mg/dl (0.00-0.20); BILIRUBIN,INDIRECT 1.5 mg/dl (0-1.1); BILIRUBIN,TOTAL 3.7 mg/dl (0.2-1.3); CALCIUM 6.9 mg/dl (8.4-10.2); CREATININE 0.66 mg/dl (0.61-1.24); MAGNESIUM 2.1 mg/dl (1.7-2.5); POTASSIUM 3.7 mmol/L (3.5-5.1); TOTAL PROTEIN 6.3 g/dl (6.1-8.1)
[2017-06-26] MEDS ORDERED: FUROSEMIDE 40 MG INJ IV SCH (13:30)
--- NOTE | 2017-06-26 16:03 | PN ---
Date/Time of Note Date/Time of Note DATE: 06/26/17 TIME: 16:02 Assessment/Plan VTE Prophylaxis VTE Prophylaxis Intervention: SCD's Lines/Catheters IV Catheter Type (from [facility]): Saline Lock Urinary Cath still in place: No Assessment/Plan Chief Complaint/Hosp Course Assessment: GI bleeding/hematemesis/melena EGD * Grade I/IV esophageal varices * Evidence of previous EVL * Most severe portal hypertensive gastropathy likely source of bleeding due to extreme friability * Rule out H. 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 * History of esophageal varices post endoscopic variceal ligation * Ascites/increasing * Mild coagulopathy * Multifocal hepatocellular carcinoma * History of alcohol abuse Plan: Continue present regimen Protonix 40 mg daily Possible paracentesis tomorrow Once stable discharge to be followed by his physicians at which is a TIPS capable institution Subjective: Course reviewed with nursing staff Patient interviewed and examined All labs, imaging and other results reviewed The patient reports less abdominal pain No evidence of overt gastrointestinal bleeding H&H stable for the last 48 hours Tolerating diet Increasing ascites and peripheral edema Patient should be evaluated for TIPS as bleeding will continue unless portal decompression is achieved Exam: General: well developed, well nourished, alert and oriented x3 , in no acute distress Skin: No lesions, no stigmata chronic liver disease, no evidence of bleeding diathesis Lymphatic: No palpable lymphadenopathy HEENT: No lesions Cardiovascular: Heart: Regular rate and rhythm, no murmurs, gallops or rubs. Peripheral pulses present within normal limits, no cyanosis, clubbing or edemas. No pulsatile abdominal mass Respiratory: Lungs clear to auscultation and percussion, no wheezing, no rubs Gastrointestinal and Liver: Abdomen: Soft, mildly tender, moderately distended, no hernias, no masses, no organomegaly, large amount of ascites, no guarding, no rebound tenderness, normoactive bowel sounds. Extremities: No cyanosis, clubbing, 2+ pitting edema Diagnostic Studies: Available data and images were reviewed personally. See reports. Significant results and findings are addressed here or in the assessment and plan. Problems: Exam/Review of Systems Vital Signs Vitals Vital Signs Date Time Temp Pulse Resp B/P Pulse Ox O2 Delivery O2 Flow Rate FiO2 06/26/17 12:12 104 06/26/17 12:05 98.1 19 116/75 94 06/23/17 05:59 Room Air Intake and Output 06/25/17 06/25/17 06/26/17 15:00 23:00 07:00 Intake Total 1200 ml 500 ml Output Total 1500 ml 175 ml Balance -300 ml 325 ml Results Result Diagram: 06/26/17 0829 06/26/17 0829 Results 24 hrs Laboratory Tests Test 06/26/17 08:29 White Blood Count 9.7 Red Blood Count 3.08 L Hemoglobin 8.7 L Hematocrit 27.1 L Mean Corpuscular Volume 88.0 Mean Corpuscular Hemoglobin 28.2 L Mean Corpuscular Hemoglobin Concent 32.1 Red Cell Distribution Width 17.1 H Platelet Count 154 Mean Platelet Volume 9.7 Neutrophils % 67.0 Lymphocytes % 14.4 L Monocytes % 14.6 H Eosinophils % 2.3 Basophils % 0.4 Nucleated Red Blood Cells % 0.0 Neutrophils # 6.5 Lymphocytes # 1.4 Monocytes # 1.4 H Eosinophils # 0.2 Basophils # 0.0 Nucleated Red Blood Cells # 0.0 Sodium Level 127 L Potassium Level 3.7 Chloride Level 102 Carbon Dioxide Level 20 L Anion Gap 9 Blood Urea Nitrogen 20 Creatinine 0.66 Glucose Level 74 Calcium Level 6.9 L Magnesium Level 2.1 Total Bilirubin 3.7 H Direct Bilirubin 2.20 #H Indirect Bilirubin 1.5 H Aspartate Amino Transf (AST/SGOT) 188 H Alanine Aminotransferase (ALT/SGPT) 95 H Alkaline Phosphatase 330 H Total Protein 6.3 Albumin 2.5 L Globulin 3.80 H Albumin/Globulin Ratio 0.65 Medications Medications Current Medications Ondansetron HCl (Zofran Inj) 4 mg Q6H PRN IV NAUSEA AND/OR VOMITING; Start 06/20/17 at 23:00 Morphine Sulfate (morphine) 2 mg Q4H PRN IV PAIN LEVEL 7-10 Last administered on 06/26/17 01:25; Admin Dose 2 MG; Start 06/20/17 at 23:00 Sucralfate (Carafate Susp) 1 gm QID PO Last administered on 06/26/17 13:01; Admin Dose 1 GM; Start 06/21/17 at 21:00 Pantoprazole (Protonix Tab) 40 mg DAILY@06 PO Last administered on 06/26/17 06 :44; Admin Dose 40 MG; Start 06/24/17 at 06:00 Spironolactone (Aldactone) 50 mg DAILY PO Last administered on 06/26/17 08:11 ; Admin Dose 50 MG; Start 06/26/17 at 09:00 Ciprofloxacin (Cipro) 500 mg DAILY@06 PO Last administered on 06/26/17 06:44; Admin Dose 500 MG; Start 06/25/17 at 13:30 Potassium Chloride (Klor-Con 10) 10 meq DAILY PO Last administered on 08:12; Admin Dose 10 MEQ; Start 06/26/17 at 09:00 Furosemide (Lasix) 80 mg DAILY IV Last administered on 06/26/17 08:13; Admin Dose 80 MG; Start 06/25/17 at 14:00 NATE CASTRO MD Jun 26, 2017 16:03
--- NOTE | 2017-06-26 16:51 | PN ---
Date/Time of Note Date/Time of Note DATE: 06/26/17 TIME: 16:45 Assessment/Plan VTE Prophylaxis VTE Prophylaxis Intervention: anti-embolic stocking, contraindicated Lines/Catheters IV Catheter Type (from Nrs): Saline Lock Urinary Cath still in place: No Assessment/Plan Assessment/Plan 1. Upper GI bleed secondary to esophageal varices - GI on board and consultation appreciated. Patient continue on PO Protonix and Sucralfate - EGD findings of grade I/IV esophageal varices, previous EVL, and severe portal hypertensive gastropathy. - monitor for further episodes of hematemesis or melena/hemotochezia - Biopsy negative for Hpylori - Discussed with patient and daughter at bedside to discuss TIPS with his GI specialist at [place] to prevent further bleeding. 2. Anemia secondary to cirrhosis and blood loss - hgb appears to be stabilizing at 8.7. - H/H this am <7 and transfused 2 units. Will continue monitoring and transfuse as needed - If <7.5 will give 1 unit PRBC and <7 give 2 units 3. Cirrhosis 2/2 alcohol abuse - Started on Spironolactone and tolerating well. Will increase dose to 100mg - Will switch Lasix to PO 4. HCC s/p TACE - Per daughter not currently on any chemotherapy after TACE procedure - Surgery on board and recommendations appreciated - Will advise to follow up with Heme/Onc upon discharge - Per daughter, they were told he is not a surgical candidate due to advanced stage of his disease 5. Ascites - s/p paracentesis - Will start on Cipro daily for SBP prophylaxis - Patient still feels distended and repeat paracentesis ordered. Possibly be performed tomorrow 6. Disposition - Paracentesis planned and if remains stable, will discharge home after Subjective 24 Hr Interval Summary Free Text/Dictation Patient feels as if his leg swelling is worsening and abdomen is distended again. Back pain has improved since has been up out of bed more. Denies any acute overnight events. Exam/Review of Systems Vital Signs Vitals Vital Signs Date Time Temp Pulse Resp B/P Pulse Ox O2 Delivery O2 Flow Rate FiO2 06/26/17 16:12 98.2 88 19 119/79 98 06/23/17 05:59 Room Air Intake and Output 06/25/17 06/25/17 06/26/17 15:00 23:00 07:00 Intake Total 1200 ml 500 ml Output Total 1500 ml 175 ml Balance -300 ml 325 ml Exam General: NAD, mild discomfort due to abdominal swelling HEENT: NC/AT, PERRL, EOM intact Neck: Supple with full range of motion Lungs: Clear to auscultation bilaterally no crackles rales or wheezing Heart: Normal S1-S2, Regular rhythm and rate. no murmurs Abdomen: Soft, slightly distended abdomen, not tense normal bowel sounds Extremities: 2+ LE edema bilaterally, no cyanosis Neurologic: Normal mental status, speech normal, cranial nerves II through XII are intact, motor and sensory are intact, no focal weakness physical exam, Results Result Diagram: 06/26/1782806/26/17828 Results 24 hrs Laboratory Tests Test 06/26/17 08:29 White Blood Count 9.7 Red Blood Count 3.08 L Hemoglobin 8.7 L Hematocrit 27.1 L Mean Corpuscular Volume 88.0 Mean Corpuscular Hemoglobin 28.2 L Mean Corpuscular Hemoglobin Concent 32.1 Red Cell Distribution Width 17.1 H Platelet Count 154 Mean Platelet Volume 9.7 Neutrophils % 67.0 Lymphocytes % 14.4 L Monocytes % 14.6 H Eosinophils % 2.3 Basophils % 0.4 Nucleated Red Blood Cells % 0.0 Neutrophils # 6.5 Lymphocytes # 1.4 Monocytes # 1.4 H Eosinophils # 0.2 Basophils # 0.0 Nucleated Red Blood Cells # 0.0 Sodium Level 127 L Potassium Level 3.7 Chloride Level 102 Carbon Dioxide Level 20 L Anion Gap 9 Blood Urea Nitrogen 20 Creatinine 0.66 Glucose Level 74 Calcium Level 6.9 L Magnesium Level 2.1 Total Bilirubin 3.7 H Direct Bilirubin 2.20 #H Indirect Bilirubin 1.5 H Aspartate Amino Transf (AST/SGOT) 188 H Alanine Aminotransferase (ALT/SGPT) 95 H Alkaline Phosphatase 330 H Total Protein 6.3 Albumin 2.5 L Globulin 3.80 H Albumin/Globulin Ratio 0.65 Medications Medications Current Medications Ondansetron HCl (Zofran Inj) 4 mg Q6H PRN IV NAUSEA AND/OR VOMITING; Start 06/20/17 at 23:00 Morphine Sulfate (morphine) 2 mg Q4H PRN IV PAIN LEVEL 7-10 Last administered on 06/26/17t 01:25; Admin Dose 2 MG; Start 06/20/17 at 23:00 Sucralfate (Carafate Susp) 1 gm QID PO Last administered on 06/26/17 13:01; Admin Dose 1 GM; Start 06/21/17 at 21:00 Pantoprazole (Protonix Tab) 40 mg DAILY@06 PO Last administered on 06/26/17 06 :44; Admin Dose 40 MG; Start 06/24/17 at 06:00 Spironolactone (Aldactone) 50 mg DAILY PO Last administered on 06/26/17 08:11 ; Admin Dose 50 MG; Start 06/26/17 at 09:00 Ciprofloxacin (Cipro) 500 mg DAILY@06 PO Last administered on 06/26/17 06:44; Admin Dose 500 MG; Start 06/25/17 at 13:30 Potassium Chloride (Klor-Con 10) 10 meq DAILY PO Last administered on 08:12; Admin Dose 10 MEQ; Start 06/26/17 at 09:00 Furosemide (Lasix) 80 mg DAILY IV Last administered on 06/26/17 08:13; Admin Dose 80 MG; Start 06/25/17 at 14:00 GAYATHRI CUTLER MD Jun 26, 2017 16:51
[2017-06-27] VITALS (13 sets, daily range): BP systolic 108–119; BP diastolic 68–72; PULSE 90–100; RESP 18–20
[2017-06-27] MEDS: CIPROFLOXACIN 500 MG TAB PO SCH (05:52)
[2017-06-27] MEDS: PANTOPRAZOLE (EC) 40 MG TAB PO SCH (05:52)
[2017-06-27] MEDS: POTASSIUM CHLORIDE (SR) 10 MEQ TAB PO SCH (09:01)
[2017-06-27] MEDS: FUROSEMIDE 40 MG TAB PO SCH (09:02)
[2017-06-27] MEDS: SUCRALFATE (100 MG/ML) 10ML CUP PO SCH ×4 (09:02→20:18)
[2017-06-27] MEDS: SPIRONOLACTONE 50 MG TAB PO SCH (09:02)
[2017-06-27 09:07] LABS: BASOPHILS % 0.3 % (0.0-2.0); EOSINOPHILS # 0.2 10^3/ul (0.0-0.5); EOSINOPHILS % 2.8 % (0.0-7.0); HEMATOCRIT 26.7 % (42.0-52.0); HEMOGLOBIN 8.6 g/dl (14.0-18.0); LYMPHOCYTES # 1.4 10^3/ul (0.8-2.9); MEAN CORPUSCULAR HEMOGLOBIN 27.9 pg (29.0-33.0); MEAN CORPUSCULAR HGB CONC 32.2 g/dl (32.0-37.0); MEAN CORPUSCULAR VOLUME 86.7 fl (82.0-101.0); MEAN PLATELET VOLUME 9.9 fl (7.4-10.4); MONOCYTE # 1.1 10^3/ul (0.3-0.9); NEUTROPHIL # 5.1 10^3/ul (1.6-7.5); NEUTROPHILS % 63.5 % (39.0-77.0); PLATELET COUNT 180 10^3/UL (140-415); RED BLOOD COUNT 3.08 10^6/ul (4.70-6.10); RED CELL DISTRIBUTION WIDTH 16.7 % (11.5-14.5); WHITE BLOOD COUNT 7.9 10^3/ul (4.8-10.8)
[2017-06-27 09:34] LABS: ALBUMIN 2.5 g/dl (3.3-4.9); ALBUMIN/GLOBULIN RATIO 0.67; BILIRUBIN,DIRECT 2.1 mg/dl (0.00-0.20); BILIRUBIN,INDIRECT 1.5 mg/dl (0-1.1); BILIRUBIN,TOTAL 3.6 mg/dl (0.2-1.3); CALCIUM 7.2 mg/dl (8.4-10.2); CREATININE 0.67 mg/dl (0.61-1.24); POTASSIUM 3.7 mmol/L (3.5-5.1); TOTAL PROTEIN 6.2 g/dl (6.1-8.1)
--- NOTE | 2017-06-27 10:59 | RADRPT ---
PROCEDURE: US Abdomen (limited). CLINICAL INDICATION: Abdominal pain and distension. TECHNIQUE: Multiple real-time longitudinal and transverse images of the four quadrants of the abdo men were acquired utilizing a curved array transducer. Images were reviewed on a high-resolution PAC S workstation. COMPARISON: None FINDINGS: There is minimal free fluid in the abdomen. There is not enough fluid for paracentesis. IMPRESSION: 1. Minimal free fluid in the abdomen. 2. Paracentesis was not performed. RPTAT: QQ .Kash Hall MD, MD Date Time Electronically viewed and signed by .Kash Hall MD, on 06/27/2017 10:58 .R/
[2017-06-27] MEDS: morphine 2 MG INJ IV PRN (15:45)
[2017-06-27] MEDS ORDERED: oxyCODONE 5 MG TAB PO PRN (18:30)
--- NOTE | 2017-06-27 19:38 | PN ---
Date/Time of Note Date/Time of Note DATE: 06/27/17 TIME: 19:37 Assessment/Plan VTE Prophylaxis VTE Prophylaxis Intervention: SCD's Lines/Catheters IV [facility] Type (from [facility]): Saline Lock Urinary Cath still in place: No Assessment/Plan Chief Complaint/Hosp Course Assessment/Plan 1. Upper GI bleed secondary to esophageal varices - GI on board and consultation appreciated. Patient continue on PO Protonix and Sucralfate - EGD findings of grade I/IV esophageal varices, previous EVL, and severe portal hypertensive gastropathy. - monitor for further episodes of hematemesis or melena/hemotochezia - Biopsy negative for Hpylori - Discussed with patient and daughter at bedside to discuss TIPS with his GI specialist at [place] to prevent further bleeding. 2. Anemia secondary to cirrhosis and blood loss - hgb appears to be stabilizing at 8.7. - H/H this am <7 and transfused 2 units. Will continue monitoring and transfuse as needed - If <7.5 will give 1 unit PRBC and <7 give 2 units 3. Cirrhosis 2/2 alcohol abuse - Started on Spironolactone and tolerating well. Will increase dose to 100mg - Will switch Lasix to PO 4. HCC s/p TACE - Per daughter not currently on any chemotherapy after TACE procedure - Surgery on board and recommendations appreciated - Will advise to follow up with Heme/Onc upon discharge - Per daughter, they were told he is not a surgical candidate due to advanced stage of his disease 5. Ascites - no tap today, minimal ascites - Will start on Cipro daily for SBP prophylaxis - Patient still feels distended and repeat paracentesis ordered. Possibly be performed tomorrow 6. Disposition - change to oral pain medications, dispo when pain controlled, likely tomorrow. Problems: Exam/Review of Systems Vital Signs Vitals Vital Signs Date Time Temp Pulse Resp B/P Pulse Ox O2 Delivery O2 Flow Rate FiO2 06/27/17 16:12 96 06/27/17 16:00 98.5 18 108/68 96 Intake and Output 06/26/17 06/26/17 06/27/17 15:00 23:00 07:00 Intake Total 500 ml 400 ml Output Total 1600 ml 500 ml Balance -1100 ml -100 ml Results Result Diagram: 10/9/17 0821 10/9/17 0821 Results 24 hrs Laboratory Tests Test 06/27/17 08:21 White Blood Count 7.9 Red Blood Count 3.08 L Hemoglobin 8.6 L Hematocrit 26.7 L Mean Corpuscular Volume 86.7 Mean Corpuscular Hemoglobin 27.9 L Mean Corpuscular Hemoglobin Concent 32.2 Red Cell Distribution Width 16.7 H Platelet Count 180 Mean Platelet Volume 9.9 Neutrophils % 63.5 Lymphocytes % 18.0 Monocytes % 14.0 H Eosinophils % 2.8 Basophils % 0.3 Nucleated Red Blood Cells % 0.0 Neutrophils # 5.1 Lymphocytes # 1.4 Monocytes # 1.1 H Eosinophils # 0.2 Basophils # 0.0 Nucleated Red Blood Cells # 0.0 Sodium Level 129 L Potassium Level 3.7 Chloride Level 101 Carbon Dioxide Level 22 Anion Gap 10 Blood Urea Nitrogen 19 Creatinine 0.67 Glucose Level 74 Calcium Level 7.2 L Magnesium Level 2.0 Total Bilirubin 3.6 H Direct Bilirubin 2.10 H Indirect Bilirubin 1.5 H Aspartate Amino Transf (AST/SGOT) 154 H Alanine Aminotransferase (ALT/SGPT) 79 H Alkaline Phosphatase 367 H Total Protein 6.2 Albumin 2.5 L Globulin 3.70 H Albumin/Globulin Ratio 0.67 Medications Medications Current Medications Ondansetron HCl (Zofran Inj) 4 mg Q6H PRN IV NAUSEA AND/OR VOMITING; Start 06/20/17 at 23:00 Sucralfate (Carafate Susp) 1 gm QID PO Last administered on 06/27/17 17:53; Admin Dose 1 GM; Start 06/21/17 at 21:00 Pantoprazole (Protonix Tab) 40 mg DAILY@06 PO Last administered on 06/27/17 05 :52; Admin Dose 40 MG; Start 06/24/17 at 06:00 Ciprofloxacin (Cipro) 500 mg DAILY@06 PO Last administered on 06/27/17 05:52; Admin Dose 500 MG; Start 06/25/17 at 13:30 Potassium Chloride (Klor-Con 10) 10 meq DAILY PO Last administered on 09:01; Admin Dose 10 MEQ; Start 06/26/17 at 09:00 Spironolactone (Aldactone) 100 mg DAILY PO Last administered on 06/27/17 09:02 ; Admin Dose 100 MG; Start 06/27/17 at 09:00 Furosemide (Lasix) 40 mg DAILY PO Last administered on 06/27/17t 09:02; Admin Dose 40 MG; Start 06/27/17 at 09:00 Simethicone (Mylicon) 80 mg Q6 PO ; Start 06/27/17 at 18:30 Oxycodone HCl (Roxicodone) 10 mg Q4H PRN PO pain 6-10; Start 06/27/17 at 18:30 FLAKO RECIO Jun 27, 2017 19:38
--- NOTE | 2017-06-27 22:08 | RADRPT ---
PROCEDURE: XR Abdomen. CLINICAL INDICATION: Upper gastrointestinal bleeding. TECHNIQUE: AP supine abdomen x-ray. COMPARISON: None. FINDINGS: The bowel gas pattern is normal. There is no evidence of obstruction. There are no abnormal calcifications overlying the urinary tracts. There are degenerative changes of the spine. IMPRESSION: 1. No evidence of obstruction. 2. Degenerative changes of the spine. RPTAT: QQ .Kash Hall MD, MD Date Time Electronically viewed and signed by .Kash Hall MD, on 06/27/2017 22:08 .R/
--- NOTE | 2017-06-27 22:10 | RADRPT ---
PROCEDURE: US Scrotum. CLINICAL INDICATION: Scrotal pain and swelling. TECHNIQUE: Multiple sonographic images of the scrotal region were obtained utilizing a linear arra y transducer with grayscale and color-flow and pulsed Doppler imaging. The images were reviewed on a high-resolution PACS workstation. COMPARISON: No prior studies are available for comparison. FINDINGS: The right testis measures 3.3 x 2.6 x 2.6 cm. The left testis measures 3.3 x 2.3 x 2.7 cm. There is no intratesticular mass. The epididymi are normal. There is normal flow to both testes demonstrated with color Doppler and pulsed Doppler sonography. There is a small right hydrocele. There is no left hydrocele. There is no varicocele. There is marked diffuse scrotal wall thickening measuring approximately 1.5 cm. IMPRESSION: 1. Small right hydrocele. 2. Normal testes and epididymi. 3. Marked diffuse scrotal wall thickening. RPTAT: QQ .Kash Hall MD, MD Date Time Electronically viewed and signed by .Kash Hall MD, on 06/27/2017 22:09 .R/
[2017-06-28] VITALS (12 sets, daily range): BP systolic 96–117; BP diastolic 56–74; PULSE 73–96; RESP 18–21
[2017-06-28] MEDS: PANTOPRAZOLE (EC) 40 MG TAB PO SCH (05:25)
[2017-06-28] MEDS: CIPROFLOXACIN 500 MG TAB PO SCH (05:25)
[2017-06-28 08:51] LABS: BASOPHILS % 0.3 % (0.0-2.0); EOSINOPHILS # 0.2 10^3/ul (0.0-0.5); EOSINOPHILS % 2.7 % (0.0-7.0); HEMATOCRIT 26.1 % (42.0-52.0); HEMOGLOBIN 8.3 g/dl (14.0-18.0); LYMPHOCYTES # 1.1 10^3/ul (0.8-2.9); LYMPHOCYTES % 18.9 % (15.0-51.0); MEAN CORPUSCULAR HEMOGLOBIN 27.5 pg (29.0-33.0); MEAN CORPUSCULAR HGB CONC 31.8 g/dl (32.0-37.0); MEAN CORPUSCULAR VOLUME 86.4 fl (82.0-101.0); MEAN PLATELET VOLUME 9.9 fl (7.4-10.4); MONOCYTE # 0.8 10^3/ul (0.3-0.9); MONOCYTES % 14.3 % (0.0-11.0); NEUTROPHIL # 3.6 10^3/ul (1.6-7.5); NEUTROPHILS % 61.7 % (39.0-77.0); PLATELET COUNT 177 10^3/UL (140-415); RED BLOOD COUNT 3.02 10^6/ul (4.70-6.10); RED CELL DISTRIBUTION WIDTH 16.5 % (11.5-14.5); WHITE BLOOD COUNT 5.8 10^3/ul (4.8-10.8)
[2017-06-28 09:05] LABS: ALBUMIN 2.2 g/dl (3.3-4.9); ALBUMIN/GLOBULIN RATIO 0.57; BILIRUBIN,DIRECT 1.4 mg/dl (0.00-0.20); BILIRUBIN,INDIRECT 1.3 mg/dl (0-1.1); BILIRUBIN,TOTAL 2.7 mg/dl (0.2-1.3); CALCIUM 7.3 mg/dl (8.4-10.2); CREATININE 0.67 mg/dl (0.61-1.24); MAGNESIUM 1.9 mg/dl (1.7-2.5); POTASSIUM 3.7 mmol/L (3.5-5.1)
[2017-06-28] MEDS: SUCRALFATE (100 MG/ML) 10ML CUP PO SCH ×4 (09:39→20:10)
[2017-06-28] MEDS: FUROSEMIDE 40 MG TAB PO SCH (09:39)
[2017-06-28] MEDS: POTASSIUM CHLORIDE (SR) 10 MEQ TAB PO SCH (09:39)
[2017-06-28] MEDS: SPIRONOLACTONE 50 MG TAB PO SCH (09:39)
--- NOTE | 2017-06-28 13:57 | PN ---
Date/Time of Note Date/Time of Note DATE: 06/28/17 TIME: 13:50 Assessment/Plan VTE Prophylaxis VTE Prophylaxis Intervention: SCD's Lines/Catheters IV Catheter Type (from [facility]): Saline Lock Urinary Cath still in place: No Assessment/Plan Assessment/Plan 1. Upper GI bleed secondary to esophageal varices, stopped, on protonix and carafate, add propranolol 2. Anemia secondary to cirrhosis and blood loss, stable H/H 3. Cirrhosis 2/2 alcohol abuse, on lasix/aldactone 4. HCC s/p TACE - Per daughter not currently on any chemotherapy after TACE procedure - Surgery on board and recommendations appreciated - Will advise to follow up with Heme/Onc upon discharge - Per daughter, they were told he is not a surgical candidate due to advanced stage of his disease 5. Ascites with leakage from previous paracentesis site Subjective 24 Hr Interval Summary Free Text/Dictation still leak from the paracentesis site Exam/Review of Systems Vital Signs Vitals Vital Signs Date Time Temp Pulse Resp B/P Pulse Ox O2 Delivery O2 Flow Rate FiO2 06/28/17 12:10 96 06/28/17 11:30 98.4 20 115/74 100 Intake and Output 06/27/17 06/27/17 06/28/17 14:59 22:59 06:59 Intake Total 1050 ml 200 ml Output Total 100 ml Balance 950 ml 200 ml Exam Constitutional: alert, oriented, well developed Psych: nl mood/affect, no complaints Head: atraumatic, normocephalic Eyes: EOMI, PERRL, nl conjunctiva, nl lids ENMT: nl external ears & nose, nl lips & teeth, nl nasal mucosa & septum Neck: non-tender, supple Respiratory: clear to auscultation, normal air movement, No congested cough, No crackles/rales, No diminished breath sounds, No intercostal retraction, No labored breathing, No other, No respirations, No tactile fremitus, No wheezing Cardiovascular: nl pulses, regular rate and rhythm, No S3, No S4, No bruits, No diastolic murmur, No edema, No gallop, No irregular rhythm, No jugular venous distention (JVD), No murmurs/extra sounds, No other, No rub, No systolic murmur Gastrointestinal: ascites, distended, nl liver, spleen, soft Musculoskeletal: nl extremities to inspection Extremities: edema, normal pulses, pitting pedal edema, No calf tenderness, No clubbing, No cyanosis, No other, No palpable cord, No tenderness Neurological: [employer] II-XII intact, nl mental status, nl speech, nl strength Results Result Diagram: 06/28/1772806/28/17728 Results 24 hrs Laboratory Tests Test 06/28/17 07:29 White Blood Count 5.8 # Red Blood Count 3.02 L Hemoglobin 8.3 L Hematocrit 26.1 L Mean Corpuscular Volume 86.4 Mean Corpuscular Hemoglobin 27.5 L Mean Corpuscular Hemoglobin Concent 31.8 L Red Cell Distribution Width 16.5 H Platelet Count 177 Mean Platelet Volume 9.9 Neutrophils % 61.7 Lymphocytes % 18.9 Monocytes % 14.3 H Eosinophils % 2.7 Basophils % 0.3 Nucleated Red Blood Cells % 0.0 Neutrophils # 3.6 Lymphocytes # 1.1 Monocytes # 0.8 Eosinophils # 0.2 Basophils # 0.0 Nucleated Red Blood Cells # 0.0 Sodium Level 126 L Potassium Level 3.7 Chloride Level 101 Carbon Dioxide Level 22 Anion Gap 7 L Blood Urea Nitrogen 16 Creatinine 0.67 Glucose Level 75 Calcium Level 7.3 L Magnesium Level 1.9 Total Bilirubin 2.7 H Direct Bilirubin 1.40 #H Indirect Bilirubin 1.3 H Aspartate Amino Transf (AST/SGOT) 136 H Alanine Aminotransferase (ALT/SGPT) 77 H Alkaline Phosphatase 367 H Total Protein 6.0 L Albumin 2.2 L Globulin 3.80 H Albumin/Globulin Ratio 0.57 Medications Medications Current Medications Ondansetron HCl (Zofran Inj) 4 mg Q6H PRN IV NAUSEA AND/OR VOMITING; Start 06/20/17 at 23:00 Sucralfate (Carafate Susp) 1 gm QID PO Last administered on 06/28/17 12:35; Admin Dose 1 GM; Start 06/21/17 at 21:00 Pantoprazole (Protonix Tab) 40 mg DAILY@06 PO Last administered on 06/28/17 05:25; Admin Dose 40 MG; Start 06/24/17 at 06:00 Ciprofloxacin (Cipro) 500 mg DAILY@06 PO Last administered on 06/28/17 05:25 ; Admin Dose 500 MG; Start 06/25/17 at 13:30 Potassium Chloride (Klor-Con 10) 10 meq DAILY PO Last administered on 09:39; Admin Dose 10 MEQ; Start 06/26/17 at 09:00 Spironolactone (Aldactone) 100 mg DAILY PO Last administered on 06/28/17 09: 39; Admin Dose 100 MG; Start 06/27/17 at 09:00 Furosemide (Lasix) 40 mg DAILY PO Last administered on 06/28/17 09:39; Admin Dose 40 MG; Start 06/27/17 at 09:00 Simethicone (Mylicon) 80 mg Q6 PO Last administered on 06/28/17 12:35; Admin Dose 80 MG; Start 06/27/17 at 18:30 Oxycodone HCl (Roxicodone) 10 mg Q4H PRN PO pain 6-10; Start 06/27/17 at 18:30 KANG HERNÁNDEZ MD Jun 28, 2017 13:57
--- NOTE | 2017-06-28 16:34 | PN ---
Date/Time of Note Date/Time of Note DATE: 06/28/17 TIME: 16:29 Assessment/Plan VTE Prophylaxis VTE Prophylaxis Intervention: SCD's Lines/Catheters IV Catheter Type (from [facility]): Saline Lock Urinary Cath still in place: No Assessment/Plan Chief Complaint/Hosp Course Assessment: GI bleeding/hematemesis/melena EGD * Grade I/IV esophageal varices * Evidence of previous EVL * Most severe portal hypertensive gastropathy likely source of bleeding due to extreme friability * H. 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 * History of esophageal varices post endoscopic variceal ligation * Ascites/increasing * Mild coagulopathy * Multifocal hepatocellular carcinoma * History of alcohol abuse Plan: Continue present regimen Protonix 40 mg daily Once stable discharge to be followed by his physicians at [facility] which is a TIPS capable institution Maintain ostomy bag- hoping for spontaneous closure, if persist may need to consider surgical closure Subjective: Course reviewed with nursing staff Patient interviewed and examined All labs, imaging and other results reviewed The patient reports less abdominal pain No evidence of overt gastrointestinal bleeding Patient remains anemic although H&H currently stable Tolerating diet Leakage at paracentesis site, maintain ostomy bag, ascites and peripheral edema remain present Once clinically stable, patient should be evaluated for TIPS as an outpatient as bleeding will continue until portal decompression is achieved Exam: General: well developed, well nourished, alert and oriented x3 , in no acute distress Skin: No lesions, no stigmata chronic liver disease, no evidence of bleeding diathesis Lymphatic: No palpable lymphadenopathy HEENT: No lesions Cardiovascular: Heart: Regular rate and rhythm, no murmurs, gallops or rubs. Peripheral pulses present within normal limits, no cyanosis, clubbing or edemas. No pulsatile abdominal mass Respiratory: Lungs clear to auscultation and percussion, no wheezing, no rubs Gastrointestinal and Liver: Abdomen: Soft, mildly tender, moderately distended, no hernias, no masses, no organomegaly, large amount of ascites, no guarding, no rebound tenderness, normoactive bowel sounds. Extremities: No cyanosis, clubbing, 2+ pitting edema Diagnostic Studies: Available data and images were reviewed personally. See reports. Significant results and findings are addressed here or in the assessment and plan. Problems: Exam/Review of Systems Vital Signs Vitals Vital Signs Date Time Temp Pulse Resp B/P Pulse Ox O2 Delivery O2 Flow Rate FiO2 06/28/17 16:12 87 06/28/17 15:43 98.3 21 105/71 100 Intake and Output 06/27/17 06/27/17 06/28/17 15:00 23:00 07:00 Intake Total 1050 ml 200 ml Output Total 100 ml Balance 950 ml 200 ml Results Result Diagram: 06/28/17 0729 06/28/17 0729 Results 24 hrs Laboratory Tests Test 06/28/17 07:29 White Blood Count 5.8 # Red Blood Count 3.02 L Hemoglobin 8.3 L Hematocrit 26.1 L Mean Corpuscular Volume 86.4 Mean Corpuscular Hemoglobin 27.5 L Mean Corpuscular Hemoglobin Concent 31.8 L Red Cell Distribution Width 16.5 H Platelet Count 177 Mean Platelet Volume 9.9 Neutrophils % 61.7 Lymphocytes % 18.9 Monocytes % 14.3 H Eosinophils % 2.7 Basophils % 0.3 Nucleated Red Blood Cells % 0.0 Neutrophils # 3.6 Lymphocytes # 1.1 Monocytes # 0.8 Eosinophils # 0.2 Basophils # 0.0 Nucleated Red Blood Cells # 0.0 Sodium Level 126 L Potassium Level 3.7 Chloride Level 101 Carbon Dioxide Level 22 Anion Gap 7 L Blood Urea Nitrogen 16 Creatinine 0.67 Glucose Level 75 Calcium Level 7.3 L Magnesium Level 1.9 Total Bilirubin 2.7 H Direct Bilirubin 1.40 #H Indirect Bilirubin 1.3 H Aspartate Amino Transf (AST/SGOT) 136 H Alanine Aminotransferase (ALT/SGPT) 77 H Alkaline Phosphatase 367 H Total Protein 6.0 L Albumin 2.2 L Globulin 3.80 H Albumin/Globulin Ratio 0.57 Medications Medications Current Medications Ondansetron HCl (Zofran Inj) 4 mg Q6H PRN IV NAUSEA AND/OR VOMITING; Start 06/20/17 at 23:00 Sucralfate (Carafate Susp) 1 gm QID PO Last administered on 06/28/17 12:35; Admin Dose 1 GM; Start 06/21/17 at 21:00 Pantoprazole (Protonix Tab) 40 mg DAILY@06 PO Last administered on 06/28/17 05:25; Admin Dose 40 MG; Start 06/24/17 at 06:00 Ciprofloxacin (Cipro) 500 mg DAILY@06 PO Last administered on 06/28/17 05:25 ; Admin Dose 500 MG; Start 06/25/17 at 13:30 Potassium Chloride (Klor-Con 10) 10 meq DAILY PO Last administered on 09:39; Admin Dose 10 MEQ; Start 06/26/17 at 09:00 Spironolactone (Aldactone) 100 mg DAILY PO Last administered on 06/28/17 09: 39; Admin Dose 100 MG; Start 06/27/17 at 09:00 Furosemide (Lasix) 40 mg DAILY PO Last administered on 06/28/17 09:39; Admin Dose 40 MG; Start 06/27/17 at 09:00 Simethicone (Mylicon) 80 mg Q6 PO Last administered on 06/28/17 12:35; Admin Dose 80 MG; Start 06/27/17 at 18:30 Oxycodone HCl (Roxicodone) 10 mg Q4H PRN PO pain 6-10; Start 06/27/17 at 18:30 Propranolol HCl (Inderal La) 60 mg DAILY PO ; Start 06/28/17 at 14:00 KATHY HAWLEY Jun 28, 2017 16:34
[2017-06-28] MEDS: PROPRANOLOL (LA) 60 MG CAP PO SCH (17:48)
[2017-06-29] VITALS (12 sets, daily range): BP systolic 90–107; BP diastolic 51–69; PULSE 65–80; RESP 18–20
[2017-06-29] MEDS: CIPROFLOXACIN 500 MG TAB PO SCH (05:15)
[2017-06-29] MEDS: PANTOPRAZOLE (EC) 40 MG TAB PO SCH (05:15)
[2017-06-29 08:18] LABS: BASOPHILS % 0.4 % (0.0-2.0); EOSINOPHILS # 0.2 10^3/ul (0.0-0.5); EOSINOPHILS % 3.5 % (0.0-7.0); HEMATOCRIT 26.6 % (42.0-52.0); HEMOGLOBIN 8.5 g/dl (14.0-18.0); LYMPHOCYTES # 1.3 10^3/ul (0.8-2.9); LYMPHOCYTES % 19.3 % (15.0-51.0); MEAN CORPUSCULAR HEMOGLOBIN 27.7 pg (29.0-33.0); MEAN CORPUSCULAR VOLUME 86.6 fl (82.0-101.0); MONOCYTE # 1.1 10^3/ul (0.3-0.9); MONOCYTES % 15.5 % (0.0-11.0); NUCLEATED RED BLOOD CELLS% 0.3 /100WBC (0.0-0.0); PLATELET COUNT 228 10^3/UL (140-415); RED BLOOD COUNT 3.07 10^6/ul (4.70-6.10); RED CELL DISTRIBUTION WIDTH 16.5 % (11.5-14.5); WHITE BLOOD COUNT 6.9 10^3/ul (4.8-10.8)
[2017-06-29 08:39] LABS: CALCIUM 7.3 mg/dl (8.4-10.2); CREATININE 0.69 mg/dl (0.61-1.24); POTASSIUM 3.9 mmol/L (3.5-5.1)
[2017-06-29] MEDS: PROPRANOLOL (LA) 60 MG CAP PO SCH (09:00)
[2017-06-29] MEDS: FUROSEMIDE 40 MG TAB PO SCH (09:00)
[2017-06-29] MEDS: SUCRALFATE (100 MG/ML) 10ML CUP PO SCH ×4 (09:39→20:44)
[2017-06-29] MEDS: SPIRONOLACTONE 50 MG TAB PO SCH (09:39)
[2017-06-29] MEDS: POTASSIUM CHLORIDE (SR) 10 MEQ TAB PO SCH (09:39)
--- NOTE | 2017-06-29 14:32 | PN ---
Date/Time of Note Date/Time of Note DATE: 06/29/17 TIME: 14:29 Assessment/Plan VTE Prophylaxis VTE Prophylaxis Intervention: SCD's Lines/Catheters IV Catheter Type (from [facility]): Saline Lock Urinary Cath still in place: No Assessment/Plan Assessment/Plan 1. Leakage of ascites from previous paracentesis, less than yesterday, observe 2. Upper GI bleed secondary to esophageal varices, stopped, on protonix and carafate, add propranolol 3. Anemia secondary to cirrhosis and blood loss, stable H/H 4. Cirrhosis 2/2 alcohol abuse, on lasix/aldactone 5. HCC s/p TACE - Per daughter not currently on any chemotherapy after TACE procedure - Surgery on board and recommendations appreciated - Will advise to follow up with Heme/Onc upon discharge - Per daughter, they were told he is not a surgical candidate due to advanced stage of his disease Subjective 24 Hr Interval Summary Free Text/Dictation still leak from the paracentesis site. afebrile Exam/Review of Systems Vital Signs Vitals Vital Signs Date Time Temp Pulse Resp B/P Pulse Ox O2 Delivery O2 Flow Rate FiO2 06/29/17 12:05 97.4 78 20 90/56 99 Intake and Output 06/28/17 06/28/17 06/29/17 15:00 23:00 07:00 Intake Total 750 ml 200 ml Output Total 300 ml Balance -300 ml 750 ml 200 ml Exam Constitutional: alert, oriented, well developed Psych: nl mood/affect, no complaints Head: atraumatic, normocephalic Eyes: EOMI, PERRL, nl conjunctiva, nl lids ENMT: nl external ears & nose, nl lips & teeth, nl nasal mucosa & septum Neck: non-tender, supple Respiratory: clear to auscultation, normal air movement, No congested cough, No crackles/rales, No diminished breath sounds, No intercostal retraction, No labored breathing, No other, No respirations, No tactile fremitus, No wheezing Cardiovascular: nl pulses, regular rate and rhythm, No S3, No S4, No bruits, No diastolic murmur, No edema, No gallop, No irregular rhythm, No jugular venous distention (JVD), No murmurs/extra sounds, No other, No rub, No systolic murmur Gastrointestinal: ascites, distended, non-tender, soft Musculoskeletal: nl extremities to inspection Extremities: edema, normal pulses Neurological: 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[employer]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 [employer]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 II-XII intact, nl mental status, nl speech, nl strength Results Result Diagram: 06/29/1771906/29/17719 Results 24 hrs Laboratory Tests Test 06/29/17 07:20 White Blood Count 6.9 Red Blood Count 3.07 L Hemoglobin 8.5 L Hematocrit 26.6 L Mean Corpuscular Volume 86.6 Mean Corpuscular Hemoglobin 27.7 L Mean Corpuscular Hemoglobin Concent 32.0 Red Cell Distribution Width 16.5 H Platelet Count 228 # Mean Platelet Volume 10.0 Neutrophils % 58.0 Lymphocytes % 19.3 Monocytes % 15.5 H Eosinophils % 3.5 Basophils % 0.4 Nucleated Red Blood Cells % 0.3 H Neutrophils # 4.0 Lymphocytes # 1.3 Monocytes # 1.1 H Eosinophils # 0.2 Basophils # 0.0 Nucleated Red Blood Cells # 0.0 Sodium Level 127 L Potassium Level 3.9 Chloride Level 103 Carbon Dioxide Level 23 Anion Gap 5 L Blood Urea Nitrogen 15 Creatinine 0.69 Glucose Level 80 Calcium Level 7.3 L Medications Medications Current Medications Ondansetron HCl (Zofran Inj) 4 mg Q6H PRN IV NAUSEA AND/OR VOMITING Last administered on 06/29/17 07:44; Admin Dose 4 MG; Start 06/20/17 at 23:00 Sucralfate (Carafate Susp) 1 gm QID PO Last administered on 06/29/17 12:48; Admin Dose 1 GM; Start 06/21/17 at 21:00 Pantoprazole (Protonix Tab) 40 mg DAILY@06 PO Last administered on 06/29/17 05:15; Admin Dose 40 MG; Start 06/24/17 at 06:00 Ciprofloxacin (Cipro) 500 mg DAILY@06 PO Last administered on 06/29/17 05:15 ; Admin Dose 500 MG; Start 06/25/17 at 13:30 Potassium Chloride (Klor-Con 10) 10 meq DAILY PO Last administered on 09:39; Admin Dose 10 MEQ; Start 06/26/17 at 09:00 Spironolactone (Aldactone) 100 mg DAILY PO Last administered on 06/29/17 09: 39; Admin Dose 100 MG; Start 06/27/17 at 09:00 Furosemide (Lasix) 40 mg DAILY PO Last administered on 06/28/17 09:39; Admin Dose 40 MG; Start 06/27/17 at 09:00 Simethicone (Mylicon) 80 mg Q6 PO Last administered on 06/29/17 12:48; Admin Dose 80 MG; Start 06/27/17 at 18:30 Oxycodone HCl (Roxicodone) 10 mg Q4H PRN PO pain 6-10; Start 06/27/17 at 18:30 Propranolol HCl (Inderal La) 60 mg DAILY PO Last administered on 06/28/17 17: 48; Admin Dose 60 MG; Start 06/28/17 at 14:00 KANG HERNÁNDEZ MD Jun 29, 2017 14:32
--- NOTE | 2017-06-29 15:14 | PN ---
Date/Time of Note Date/Time of Note DATE: 06/29/17 TIME: 15:10 Assessment/Plan VTE Prophylaxis VTE Prophylaxis Intervention: SCD's Lines/Catheters IV Catheter Type (from [facility]): Saline Lock Urinary Cath still in place: No Assessment/Plan Chief Complaint/Hosp Course Assessment: GI bleeding/hematemesis/melena EGD * Grade I/IV esophageal varices * Evidence of previous EVL * Most severe portal hypertensive gastropathy likely source of bleeding due to extreme friability * H. 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 * History of esophageal varices post endoscopic variceal ligation * Ascites * Mild coagulopathy * Multifocal hepatocellular carcinoma * History of alcohol abuse Plan: Continue to maintain ostomy bag for ongoing leakage at paracentesis site Recommend surgical consult for surgical closure Protonix 40 mg daily Upon discharge, patient to be followed by his physicians at [facility] which is a TIPS capable institution Subjective: Course reviewed with nursing staff Patient interviewed and examined All labs, imaging and other results reviewed Feels well, sitting up in chair Concerned about persistent leakage at paracentesis site, instructed to maintain ostomy bag Ascites and lower extremity edema remains unchanged No evidence of overt gastrointestinal bleeding Patient remains anemic although H&H currently stable Tolerating diet Once clinically stable, patient should be evaluated for TIPS as an outpatient as bleeding will continue until portal decompression is achieved Exam: General: well developed, well nourished, alert and oriented x3 , in no acute distress Skin: No lesions, no stigmata chronic liver disease, no evidence of bleeding diathesis Lymphatic: No palpable lymphadenopathy HEENT: No lesions Cardiovascular: Heart: Regular rate and rhythm, no murmurs, gallops or rubs. Peripheral pulses present within normal limits, no cyanosis, clubbing or edemas. No pulsatile abdominal mass Respiratory: Lungs clear to auscultation and percussion, no wheezing, no rubs Gastrointestinal and Liver: Abdomen: Soft, mildly tender, moderately distended, no hernias, no masses, no organomegaly, large amount of ascites, no guarding, no rebound tenderness, normoactive bowel sounds. Extremities: No cyanosis, clubbing, 2+ pitting edema Diagnostic Studies: Available data and images were reviewed personally. See reports. Significant results and findings are addressed here or in the assessment and plan. Problems: Exam/Review of Systems Vital Signs Vitals Vital Signs Date Time Temp Pulse Resp B/P Pulse Ox O2 Delivery O2 Flow Rate FiO2 06/29/17 12:05 97.4 78 20 90/56 99 Intake and Output 06/28/17 06/28/17 06/29/17 15:00 23:00 07:00 Intake Total 750 ml 200 ml Output Total 300 ml Balance -300 ml 750 ml 200 ml Results Result Diagram: 06/29/1771906/29/1720 Results 24 hrs Laboratory Tests Test 06/29/17 07:20 White Blood Count 6.9 Red Blood Count 3.07 L Hemoglobin 8.5 L Hematocrit 26.6 L Mean Corpuscular Volume 86.6 Mean Corpuscular Hemoglobin 27.7 L Mean Corpuscular Hemoglobin Concent 32.0 Red Cell Distribution Width 16.5 H Platelet Count 228 # Mean Platelet Volume 10.0 Neutrophils % 58.0 Lymphocytes % 19.3 Monocytes % 15.5 H Eosinophils % 3.5 Basophils % 0.4 Nucleated Red Blood Cells % 0.3 H Neutrophils # 4.0 Lymphocytes # 1.3 Monocytes # 1.1 H Eosinophils # 0.2 Basophils # 0.0 Nucleated Red Blood Cells # 0.0 Sodium Level 127 L Potassium Level 3.9 Chloride Level 103 Carbon Dioxide Level 23 Anion Gap 5 L Blood Urea Nitrogen 15 Creatinine 0.69 Glucose Level 80 Calcium Level 7.3 L Medications Medications Current Medications Ondansetron HCl (Zofran Inj) 4 mg Q6H PRN IV NAUSEA AND/OR VOMITING Last administered on 06/29/17 07:44; Admin Dose 4 MG; Start 06/20/17 at 23:00 Sucralfate (Carafate Susp) 1 gm QID PO Last administered on 06/29/17 12:48; Admin Dose 1 GM; Start 06/21/17 at 21:00 Pantoprazole (Protonix Tab) 40 mg DAILY@06 PO Last administered on 06/29/17 05:15; Admin Dose 40 MG; Start 06/24/17 at 06:00 Ciprofloxacin (Cipro) 500 mg DAILY@06 PO Last administered on 06/29/17 05:15 ; Admin Dose 500 MG; Start 06/25/17 at 13:30 Potassium Chloride (Klor-Con 10) 10 meq DAILY PO Last administered on 09:39; Admin Dose 10 MEQ; Start 06/26/17 at 09:00 Spironolactone (Aldactone) 100 mg DAILY PO Last administered on 06/29/17 09: 39; Admin Dose 100 MG; Start 06/27/17 at 09:00 Furosemide (Lasix) 40 mg DAILY PO Last administered on 06/28/17 09:39; Admin Dose 40 MG; Start 06/27/17 at 09:00 Simethicone (Mylicon) 80 mg Q6 PO Last administered on 06/29/17 12:48; Admin Dose 80 MG; Start 06/27/17 at 18:30 Oxycodone HCl (Roxicodone) 10 mg Q4H PRN PO pain 6-10; Start 06/27/17 at 18:30 Propranolol HCl (Inderal La) 60 mg DAILY PO Last administered on 06/28/17 17: 48; Admin Dose 60 MG; Start 06/28/17 at 14:00 KATHY HAWLEY Jun 29, 2017 15:14
[2017-06-30] VITALS (11 sets, daily range): BP systolic 90–113; BP diastolic 57–67; PULSE 66–96; RESP 18–20
[2017-06-30] MEDS: PANTOPRAZOLE (EC) 40 MG TAB PO SCH (05:10)
[2017-06-30] MEDS: CIPROFLOXACIN 500 MG TAB PO SCH (05:11)
[2017-06-30] MEDS: SUCRALFATE (100 MG/ML) 10ML CUP PO SCH ×3 (10:18→17:16)
[2017-06-30] MEDS: SPIRONOLACTONE 50 MG TAB PO SCH ×2 (10:19→21:46)
[2017-06-30] MEDS: FUROSEMIDE 40 MG TAB PO SCH (10:20)
[2017-06-30] MEDS: PROPRANOLOL (LA) 60 MG CAP PO SCH (10:20)
[2017-06-30] MEDS: POTASSIUM CHLORIDE (SR) 10 MEQ TAB PO SCH (10:20)
--- NOTE | 2017-06-30 12:55 | PN ---
Date/Time of Note Date/Time of Note DATE: 06/30/17 TIME: 12:53 Assessment/Plan VTE Prophylaxis VTE Prophylaxis Intervention: SCD's Lines/Catheters IV [facility] Type (from [facility]): Saline Lock Urinary Cath still in place: No Assessment/Plan Assessment/Plan 1. Leakage of ascites from previous paracentesis, significantly less, remove the bag, home if stop leaking 2. Upper GI bleed secondary to esophageal varices, stopped, on protonix and carafate, on propranolol 3. Anemia secondary to cirrhosis and blood loss, stable H/H 4. Cirrhosis 2/2 alcohol abuse, on lasix/aldactone 5. HCC s/p TACE - Per daughter not currently on any chemotherapy after TACE procedure - Surgery on board and recommendations appreciated - Will advise to follow up with Heme/Onc upon discharge Subjective 24 Hr Interval Summary Free Text/Dictation no fever. less drainage from the paracentesis site Exam/Review of Systems Vital Signs Vitals Vital Signs Date Time Temp Pulse Resp B/P Pulse Ox O2 Delivery O2 Flow Rate FiO2 06/30/17 11:46 97.7 77 20 99 06/30/17 11:33 104/67 06/30/17 02:34 Room Air Intake and Output 06/29/17 06/29/17 06/30/17 15:00 23:00 07:00 Intake Total 720 ml 650 ml Output Total 250 ml 400 ml Balance 470 ml 250 ml Exam Constitutional: alert, oriented, well developed Psych: nl mood/affect, no complaints Head: atraumatic, normocephalic Eyes: EOMI, PERRL, nl conjunctiva, nl lids, nl sclera ENMT: nl external ears & nose, nl lips & teeth, nl nasal mucosa & septum Neck: non-tender, supple Respiratory: clear to auscultation, normal air movement, No congested cough, No crackles/rales, No diminished breath sounds, No intercostal retraction, No labored breathing, No other, No respirations, No tactile fremitus, No wheezing Cardiovascular: nl pulses, regular rate and rhythm, No S3, No S4, No bruits, No diastolic murmur, No edema, No gallop, No irregular rhythm, No jugular venous distention (JVD), No murmurs/extra sounds, No other, No rub, No systolic murmur Gastrointestinal: distended, nl liver, spleen, non-tender, soft Extremities: normal pulses Neurological: 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 intact, nl mental status, nl speech, nl strength Results Result Diagram: 06/29/1771906/29/17 0720 Medications Medications Current Medications Ondansetron HCl (Zofran Inj) 4 mg Q6H PRN IV NAUSEA AND/OR VOMITING Last administered on 06/29/17 07:44; Admin Dose 4 MG; Start 06/20/17 at 23:00 Sucralfate (Carafate Susp) 1 gm QID PO Last administered on 06/30/17 10:18; Admin Dose 1 GM; Start 06/21/17 at 21:00 Pantoprazole (Protonix Tab) 40 mg DAILY@06 PO Last administered on 06/30/17 05:10; Admin Dose 40 MG; Start 06/24/17 at 06:00 Ciprofloxacin (Cipro) 500 mg DAILY@06 PO Last administered on 06/30/17 05:11 ; Admin Dose 500 MG; Start 06/25/17 at 13:30 Potassium Chloride (Klor-Con 10) 10 meq DAILY PO Last administered on 10:20; Admin Dose 10 MEQ; Start 06/26/17 at 09:00 Spironolactone (Aldactone) 100 mg DAILY PO Last administered on 06/30/17 10: 19; Admin Dose 100 MG; Start 06/27/17 at 09:00 Furosemide (Lasix) 40 mg DAILY PO Last administered on 06/30/17 10:20; Admin Dose 40 MG; Start 06/27/17 at 09:00 Simethicone (Mylicon) 80 mg Q6 PO Last administered on 06/30/17 05:10; Admin Dose 80 MG; Start 06/27/17 at 18:30 Oxycodone HCl (Roxicodone) 10 mg Q4H PRN PO pain 6-10 Last administered on 02:32; Admin Dose 10 MG; Start 06/27/17 at 18:30 Propranolol HCl (Inderal La) 60 mg DAILY PO Last administered on 06/30/17 10: 20; Admin Dose 60 MG; Start 06/28/17 at 14:00 KANG HERNÁNDEZ MD Jun 30, 2017 12:55
--- NOTE | 2017-06-30 16:13 | PN ---
Date/Time of Note Date/Time of Note DATE: 06/30/17 TIME: 16:10 Assessment/Plan VTE Prophylaxis VTE Prophylaxis Intervention: SCD's Lines/Catheters [facility] Saline Lock Urinary Cath still in place: No Assessment/Plan Chief Complaint/Hosp Course Assessment: GI bleeding/hematemesis/melena EGD * Grade I/IV esophageal varices * Evidence of previous EVL * Most severe portal hypertensive gastropathy likely source of bleeding due to extreme friability * H. 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 * History of esophageal varices post endoscopic variceal ligation * Ascites * Mild coagulopathy * Multifocal hepatocellular carcinoma * History of alcohol abuse Plan: Maintain pressure dressing to paracentesis site Protonix 40 mg daily Cleared from GI point of view Upon discharge, patient to be followed by his physicians at [facility] which is a TIPS capable institution Subjective: Course reviewed with nursing staff Patient interviewed and examined All labs, imaging and other results reviewed No complaints, ostomy bag removed and pressure dressing placed this am Dressing intact with no signs of large amounts of drainage Ascites and lower extremity edema remains unchanged No evidence of overt gastrointestinal bleeding Patient remains anemic although H&H currently stable Tolerating diet Possible d/c 07/01 Once clinically stable, patient should be evaluated for TIPS as an outpatient as bleeding will continue until portal decompression is achieved Exam: General: well developed, well nourished, alert and oriented x3 , in no acute distress Skin: No lesions, no stigmata chronic liver disease, no evidence of bleeding diathesis Lymphatic: No palpable lymphadenopathy HEENT: No lesions Cardiovascular: Heart: Regular rate and rhythm, no murmurs, gallops or rubs. Peripheral pulses present within normal limits, no cyanosis, clubbing or edemas. No pulsatile abdominal mass Respiratory: Lungs clear to auscultation and percussion, no wheezing, no rubs Gastrointestinal and Liver: Abdomen: Soft, mildly tender, moderately distended, no hernias, no masses, no organomegaly, large amount of ascites, no guarding, no rebound tenderness, normoactive bowel sounds. Extremities: No cyanosis, clubbing, 2+ pitting edema Diagnostic Studies: Available data and images were reviewed personally. See reports. Significant results and findings are addressed here or in the assessment and plan. Problems: Exam/Review of Systems Vital Signs Vitals Vital Signs Date Time Temp Pulse Resp B/P Pulse Ox O2 Delivery O2 Flow Rate FiO2 06/30/17 15:48 97.6 75 20 90/57 98 06/30/17 02:34 Room Air Intake and Output 06/29/17 06/29/17 06/30/17 15:00 23:00 07:00 Intake Total 720 ml 650 ml Output Total 250 ml 400 ml Balance 470 ml 250 ml Results Result Diagram: 06/29/1771906/29/17719 Medications Medications Current Medications Ondansetron HCl (Zofran Inj) 4 mg Q6H PRN IV NAUSEA AND/OR VOMITING Last administered on 06/29/17 07:44; Admin Dose 4 MG; Start 06/20/17 at 23:00 Sucralfate (Carafate Susp) 1 gm QID PO Last administered on 06/30/17 13:42; Admin Dose 1 GM; Start 06/21/17 at 21:00 Pantoprazole (Protonix Tab) 40 mg DAILY@06 PO Last administered on 06/30/17 05:10; Admin Dose 40 MG; Start 06/24/17 at 06:00 Ciprofloxacin (Cipro) 500 mg DAILY@06 PO Last administered on 06/30/17 05:11 ; Admin Dose 500 MG; Start 06/25/17 at 13:30 Potassium Chloride (Klor-Con 10) 10 meq DAILY PO Last administered on 10:20; Admin Dose 10 MEQ; Start 06/26/17 at 09:00 Spironolactone (Aldactone) 100 mg DAILY PO Last administered on 06/30/17 10: 19; Admin Dose 100 MG; Start 06/27/17 at 09:00 Furosemide (Lasix) 40 mg DAILY PO Last administered on 06/30/17 10:20; Admin Dose 40 MG; Start 06/27/17 at 09:00 Simethicone (Mylicon) 80 mg Q6 PO Last administered on 06/30/17 12:00; Admin Dose 80 MG; Start 06/27/17 at 18:30 Oxycodone HCl (Roxicodone) 10 mg Q4H PRN PO pain 6-10 Last administered on 02:32; Admin Dose 10 MG; Start 06/27/17 at 18:30 Propranolol HCl (Inderal La) 60 mg DAILY PO Last administered on 06/30/17t 10: 20; Admin Dose 60 MG; Start 06/28/17 at 14:00 KATHY HAWLEY Jun 30, 2017 16:13
[2017-07-01] VITALS (8 sets, daily range): BP systolic 94–100; BP diastolic 54–61; PULSE 61–79; RESP 18–20
[2017-07-01] MEDS: SUCRALFATE (100 MG/ML) 10ML CUP PO SCH ×4 (00:07→17:43)
[2017-07-01] MEDS: CIPROFLOXACIN 500 MG TAB PO SCH (05:59)
[2017-07-01] MEDS: PANTOPRAZOLE (EC) 40 MG TAB PO SCH (05:59)
[2017-07-01] MEDS: POTASSIUM CHLORIDE (SR) 10 MEQ TAB PO SCH (08:30)
[2017-07-01] MEDS: FUROSEMIDE 40 MG TAB PO SCH (08:30)
[2017-07-01] MEDS: PROPRANOLOL (LA) 60 MG CAP PO SCH (08:32)
[2017-07-01] MEDS ORDERED: PROP60CA PO (13:57)
[2017-07-01] MEDS ORDERED: SPIR50TA PO (13:57)
[2017-07-01] MEDS ORDERED: POTA10TA37 PO (13:57)
[2017-07-01] MEDS ORDERED: FURO40TA4 PO (13:57)
[2017-07-01] MEDS ORDERED: CARAS PO (13:57)
[2017-07-01] MEDS ORDERED: PANT40TA4 PO (13:57)
--- NOTE | 2017-07-01 14:05 | DS ---
Date/Time of Note Date/Time of Note DATE: 07/01/17 TIME: 13:58 Discharge Summary Admission/Discharge Info Admit Date/Time Jun 20, 2017 at 19:00 Discharge Date/Time Discharge Diagnosis 1. Upper GI bleed secondary to esophageal varices, stopped, on protonix and carafate, on propranolol 2. Leakage of ascites from previous paracentesis, stopped 3. Anemia secondary to cirrhosis and blood loss, stable H/H 4. Cirrhosis 2/2 alcohol abuse, on lasix/aldactone 5. HCC s/p TACE, follow up with GI/oncology Patient Condition: Stable Hx of Present Illness 62-year-old male history of cirrhosis secondary to alcohol, cholangiocarcinoma on chemotherapy last approximately 3-4 weeks ago. The patient presents with generalized fatigue, melena and coffee-ground emesis. He denies any chest pain , no fevers or chills. The patient has had endoscopy showing esophageal varices. Patient does report that he also has noticed abdominal distention over the most recent last few weeks. He denies ever having the paracentesis before. Hospital Course Patient is treated with protonix, then added carafate. EGD revealed: * Grade I/IV esophageal varices * Evidence of previous EVL * Most severe portal hypertensive gastropathy likely source of bleeding due to extreme friability * H. pylori, biopsy negative * Otherwise normal EGD Patient's GI bleeding stopped with stable H/H. The last H/H are 8.5/26.6 on 07/2017. Patient will continue protonix and carafe, added propranolol. Patient will follow up with GI outpatient. Patient had paracentesis under US that gave ascite leak for days. The leakage slows down then stopped since yesterday. Home Meds Active Scripts Pantoprazole* (Pantoprazole*) 40 Mg Tablet.dr, 40 MG PO DAILY@06 for 30 Days Prov:KANG HERNÁNDEZ MD 07/01/17 Sucralfate* (Carafate*) 1 Gm/10 Ml Susp, 1 GM PO QID for 30 Days Prov:KANG HERNÁNDEZ MD 07/01/17 Potassium Chloride* (K-Dur*) 10 Meq Tab.prt.sr, 10 MEQ PO DAILY for 30 Days Prov:KANG HERNÁNDEZ MD 07/01/17 Furosemide* (Furosemide*) 40 Mg Tablet, 40 MG PO DAILY for 30 Days, TAB Prov:KANG HERNÁNDEZ MD 07/01/17 Spironolactone* (Aldactone*) 50 Mg Tablet, 100 MG PO DAILY for 30 Days, TAB Prov:KANG HERNÁNDEZ MD 07/01/17 Propranolol Hcl (Inderal LA) 60 Mg Capsr, 60 MG PO DAILY for 30 Days, CAP Prov:KANG HERNÁNDEZ MD 07/01/17 Follow-up Plan PCP in one week GI and oncology in one week Primary Care Provider Not On Staff Doctor KANG HERNÁNDEZ MD Jul 01, 2017 14:05
--- NOTE | 2017-07-01 16:08 | PN ---
Date/Time of Note Date/Time of Note DATE: 07/01/17 TIME: 16:05 Assessment/Plan VTE Prophylaxis VTE Prophylaxis Intervention: SCD's Lines/Catheters IV [facility] Saline Lock Urinary Cath still in place: No Assessment/Plan Chief Complaint/Hosp Course Assessment: GI bleeding/hematemesis/melena EGD * Grade I/IV esophageal varices * Evidence of previous EVL * Most severe portal hypertensive gastropathy likely source of bleeding due to extreme friability * H. 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 which is a TIPS capable institution Patient seen in collaboration with Dr. Hairston Subjective: Course reviewed with nursing staff Patient interviewed and examined All labs, imaging and other results reviewed Patient doing well will be d/c'd today pressure dressing in place from yesterday- no new drainage Ascites and lower extremity edema without significant change No evidence of overt gastrointestinal bleeding Patient should be evaluated for TIPS as an outpatient as bleeding will continue until portal decompression is achieved Exam: General: well developed, well nourished, alert and oriented x3 , in no acute distress Skin: No lesions, no stigmata chronic liver disease, no evidence of bleeding diathesis Lymphatic: No palpable lymphadenopathy HEENT: No lesions Cardiovascular: Heart: Regular rate and rhythm, no murmurs, gallops or rubs. Peripheral pulses present within normal limits, no cyanosis, clubbing or edemas. No pulsatile abdominal mass Respiratory: Lungs clear to auscultation and percussion, no wheezing, no rubs Gastrointestinal and Liver: Abdomen: Soft, mildly tender, moderately distended, no hernias, no masses, no organomegaly, large amount of ascites, no guarding, no rebound tenderness, normoactive bowel sounds. Extremities: No cyanosis, clubbing, 2+ pitting edema Diagnostic Studies: Available data and images were reviewed personally. See reports. Significant results and findings are addressed here or in the assessment and plan. Problems: Exam/Review of Systems Vital Signs Vitals Vital Signs Date Time Temp Pulse Resp B/P Pulse Ox O2 Delivery O2 Flow Rate FiO2 07/01/17 16:01 98.7 84 19 94/58 100 06/30/17 02:34 Room Air Intake and Output 06/30/17 06/30/17 07/01/17 15:00 23:00 07:00 Intake Total 720 ml 410 ml Output Total 3 ml Balance 717 ml 410 ml Results Result Diagram: 06/29/1771906/29/17719 Medications Medications Current Medications Ondansetron HCl (Zofran Inj) 4 mg Q6H PRN IV NAUSEA AND/OR VOMITING Last administered on 06/29/17 07:44; Admin Dose 4 MG; Start 06/20/17 at 23:00 Sucralfate (Carafate Susp) 1 gm QID PO Last administered on 07/01/17 12:25; Admin Dose 1 GM; Start 06/21/17 at 21:00 Pantoprazole (Protonix Tab) 40 mg DAILY@06 PO Last administered on 07/01/17 05:59; Admin Dose 40 MG; Start 06/24/17 at 06:00 Ciprofloxacin (Cipro) 500 mg DAILY@06 PO Last administered on 07/01/17 05:59 ; Admin Dose 500 MG; Start 06/25/17 at 13:30 Potassium Chloride (Klor-Con 10) 10 meq DAILY PO Last administered on 08:30; Admin Dose 10 MEQ; Start 06/26/17 at 09:00 Spironolactone (Aldactone) 100 mg DAILY PO Last administered on 06/30/17 21: 46; Admin Dose 100 MG; Start 06/27/17 at 09:00 Furosemide (Lasix) 40 mg DAILY PO Last administered on 06/30/17 10:20; Admin Dose 40 MG; Start 06/27/17 at 09:00 Simethicone (Mylicon) 80 mg Q6 PO Last administered on 07/01/17 12:25; Admin Dose 80 MG; Start 06/27/17 at 18:30 Oxycodone HCl (Roxicodone) 10 mg Q4H PRN PO pain 6-10 Last administered on 02:32; Admin Dose 10 MG; Start 06/27/17 at 18:30 Propranolol HCl (Inderal La) 60 mg DAILY PO Last administered on 06/30/17t 10: 20; Admin Dose 60 MG; Start 06/28/17 at 14:00 KATHY HAWLEY Jul 01, 2017 16:08
== END 2017-07-01 18:13 | disposition home or self-care (01) | DRG 378 ==
LOC: E/R 16:48 → MS4 19:00
PROVIDERS: ADMIT Internal Medicine; ATTEND Internal Medicine
PROC: 0DB68ZX Excision of Stomach, Via Natural or Artificial Opening Endoscopic, Diagnostic (ICD-10-PCS; principal; 2017-06-23)
PROC: 0W9G3ZX Drainage of Peritoneal Cavity, Percutaneous Approach, Diagnostic (ICD-10-PCS; 2017-06-23)
DX: K92.2 Gastrointestinal hemorrhage, unspecified (principal); K76.6 Portal hypertension; C22.1 Intrahepatic bile duct carcinoma; C22.0 Liver cell carcinoma; R18.8 Other ascites; K31.89 Other diseases of stomach and duodenum; D62 Acute posthemorrhagic anemia; K70.31 Alcoholic cirrhosis of liver with ascites; I85.00 Esophageal varices without bleeding; F10.10 Alcohol abuse, uncomplicated; T83.038A Leakage of other urinary catheter, initial encounter; Z79.899 Other long term (current) drug therapy
CPT/HCPCS: 36415; 36430; 74000; 76705; 76870; 80048; 80053; 80202; 82042; 82105; 82140; 82150; 82378; 83036; 83615; 83735; 84157; 84443; 84484; 85014; 85018; 85025; 85610; 85730; 86301; 86304; 86704; 86706; 86708; 86709; 86803; 86850; 86900; 86901; 86920; 87070; 87102; 87116; 87340; 88104; 88305; 88312; 89051; 93005; 96374; 96375; 96376; C9113; J0696; J1940; J2270; J2354; J2405; J2543; J3370; J7030; J7050; P9016